=== PATIENT | female | born 1935 | race Caucasian/White ===

== ENCOUNTER 2024-06-21 16:08 | Emergency (ER) | payer MEDICARE, SELFPAY ==
[2024-06-21 16:18] VITALS: BP 138/63
[2024-06-21 16:47] LABS: % Basophils 0.5 % (0-2); % Immature Granulocytes 0.4 % (0-0.5); % Lymphocytes 35.4 % (20.5-51.1); % Monocytes 6.7 % (1.7-9.3); Absolute Eosinophils 0.2 10^3/uL (0-0.7); Absolute Monocytes 0.6 10^3/uL (0.1-0.6); Absolute Neutrophils 4.6 10^3/uL (1.4-6.5); Hematocrit 40.3 % (37.0-47.0); Mean Corp Hgb Conc. 32.3 g/dL (33.0-37.0); Mean Corpuscular Hgb 32.3 pg (27.0-31.0); Mean Corpuscular Volume 100.2 fL (81.0-99.0); Mean Platelet Volume 10.1 fL (7.4-10.4); Nucleated Red Blood Cells % 0 %; Platelet Count 242 10^3/uL (130-400); Red Blood Cell Count 4.02 10^6/uL (4.20-5.40); Red Cell Dist. Width 12.7 % (11.5-14.5); White Blood Cell Count 8.3 10^3/uL (4.8-10.8)
[2024-06-21 16:59] LABS: ALT (SGPT) 16 U/L (0-35); AST (SGOT) 24 U/L (14-36); Albumin 3.9 g/dl (3.5-5.0); Alkaline Phosphatase 74 U/L (38-126); Blood Urea Nitrogen 17 mg/dl (7-17); Calcium 9.1 mg/dl (8.4-10.2); Carbon Dioxide 28 mmol/L (22-30); Chloride 104 mmol/L (98-107); Glucose 117 mg/dl (70-99); Potassium 3.3 mmol/L (3.5-5.1); Sodium 141 mmol/L (135-145); Total Bilirubin 0.7 mg/dl (0.2-1.3); Total Protein 6.3 g/dl (6.3-8.2); eGFR 43.27
[2024-06-21 17:07] LABS: COVID-19 Antigen Negative (Negative)
[2024-06-21 17:11] LABS: Troponin I < 0.012 ng/ml
[2024-06-21 20:01] VITALS: BP 125/65
[2024-06-21 20:45] VITALS: BMI 30.1
--- NOTE | 2024-06-21 21:17 | ED.GENMED ---
History of Present Illness
General
Chief Complaint: Chest Pain
Source: patient
Exam Limitations: none
Time Seen by Provider: 06/21/24 20:07
Nursing documentation reviewed up to this point in time: agreed with
History of Present Illness
History of Present Illness:
89 y/o F
with h/o CAD, DVT/PE ON ELIQUIS, DEMENTIA, bronchitis, former smoker
PAF
here with 1 week fo chest pain intermittent and sob, wheezing, cough that is dry
pt has been put on neb treatments which do offer temporary relief but the pain seemed to be worsening, worse with cough and deep breathing
she has been taking all her meds, no reason her eliquis hasn't been given
she has not had fever, chills, weakness, leg swelling, syncope, lightheadedness
pt had 2 cxr at the facility and they said no PNA but maybe 'fluid in lungs'
pt is not on lasix
SHE HAS MOST PAIN WITH COUGHING
Past History
Past History
ED Past Medical History: CAD, CVA, GERD, Hypercholesterolemia and Other
ED Past Surgical History: Orthopedic and Other
Social History
Tobacco: Non-smoker
Alcohol: None
Drug: None
Personal:
Living: with family
Employment: Retired
Review of Systems
Review of Systems
Allergies reviewed?: Yes
All Other Systems: Not applicable
Phy Exam
Physical Exam
Physical Exam:
GENERAL: Alert , in no apparent distress
EYE: pupils equal and reactive
NECK: Supple
ENT: o/p clr, mmm.
CARDIAC: Regular rate and rhythm .
LUNGS: OCC COUGH, SLIGHTLY WHEEZY, NO RESP DISTRESS;
ABDOMEN: Soft, without focal tenderness, no r/g, no cvat, normal bowel sounds
NEUROLOGICAL: Alert and oriented, no focal neuro deficits
SKIN: Warm and dry, skin intact.
MUSCULOSKELETAL: TRACE edema, well perfused. neg jil's sign
PSYCH: Normal and appropriate interaction.
Scores
Heart Score for Chest Pain Patients
STEMI patient?: No
History: Slightly or Non-Suspicious
ECG: Nonspecific Repolarization
Age: >/= 65 years
Risk Factors: >/= 3 Risk Factors or History of CAD
Troponin: </= Normal Limit
Heart Score for Chest Pain Patients: 5
Heart Score Risk: 20.3% MACE over next 6 weeks
Course
Orders/Labs/Results
Orders:
Orders
06/21/24 16:21
Electrocardiogram (*1) Urgent
Reason for Study: Chest Pain
06/21/24 16:22
EKG- Treatment ONCE
06/21/24 16:32
CMP [Comprehensive Metabolic Panel] Urgent
COVID-19 Antigen Urgent
Source: Nasal Swab
Complete Blood Count/With Diff Urgent
NT-proBNP Urgent
Comment: ADD ON
Troponin I Urgent
Influenza A+B Rapid Molecular Urgent
AUGUSTINE Source: Nasal Swab
Specimen Description:
Date Specimen was Collected: 06/21/24
Time Specimen was Collected: 16:22
RSV [Respiratory Syncytial Virus] Urgent
AUGUSTINE Source: Nasal Swab
Specimen Description:
Date Specimen was Collected: 06/21/24
Time Specimen was Collected: 16:22
06/21/24 20:45
Add On- LAB Urgent
Tests Added?: BNP
CR Chest - 2 Views Urgent
Comment:
Reason For Exam: cough, sob,
06/21/24 21:43
CT Chest PE Study Urgent
Comment:
Reason For Exam: pleuriticp milton, sob
06/22/24 00:23
Ipratropium/Albuterol Sulfate [Duoneb] 3 ml INH R NOW ONE
Prednisone [Deltasone] 50 mg PO NOW STA
06/22/24 00:24
Doxycycline [Vibramycin] 100 mg PO NOW STA
Abnormal Lab Results
06/21/24
16:32
RBC 4.02 L 10^6/uL
(4.20-5.40)
MCV 100.2 H fL
(81.0-99.0)
MCH 32.3 H pg
(27.0-31.0)
MCHC 32.3 L g/dL
(33.0-37.0)
Potassium 3.3 L mmol/L
(3.5-5.1)
Creatinine 1.2 H mg/dL
(0.6-1.0)
Glucose 117 H mg/dl
(70-99)
06/21/24 16:32
06/21/24 16:32
Vital Signs
Initial and Last Documented VS:
Initial Vital Signs
Temp Pulse Resp BP Pulse Ox
36.7 C 82 18 138/63 96
06/21/24 16:18 06/21/24 16:18 06/21/24 16:18 06/21/24 16:18 06/21/24 16:18
Last Documented Vital Signs
Temp Pulse Resp BP Pulse Ox
36.7 C 73 22 141/59 95
06/21/24 16:18 06/22/24 00:15 06/22/24 00:15 06/22/24 00:00 06/22/24 00:15
MDM/Problems Addressed
Differential Diagnosis Includes:
BRONCHITIS, PNEUMONIA, PE
MDM/Problems Addressed:
89-year-old female coming from [facility], history of some mild dementia, ex-smoker, on Eliquis presents for 1 week of URI symptoms with a cough, occasional wheezing, and some discomfort in her chest with deep breathing and coughing. Patient has
no exertional chest pain but she has been feeling worse and worse, very sore in her chest. She is been getting neb treatments over the last couple of days which temporarily help the shortness of breath but not relieve the chest discomfort. She has
had a couple of negative chest x-rays at [facility]. She has not had a fever. On exam she is well-appearing, speaking full sentences, not hypoxic but she does have an occasional audible wheeze and an occasional cough. Her EKG is different from
before, she was in A-fib and now she is in normal sinus rhythm and has flattening T waves in the precordial leads where she had T wave inversions previously. So this EKG does look improved. It is reassuring that her troponin was negative since her
symptoms have been ongoing for several days, effectively ruling out ACS. I am aware that she is on Eliquis however with the patient's chest discomfort and her chest x-ray which looked abnormal in the retrocardiac space, CT. The CT shows
cardiomegaly I discussed the case with ED attending and we opted to but no significant pericardial effusion, some aortic calcifications without any PE, there is no pneumonia. These findings were discussed with the patient and the family. She feels
well enough to go home. She is not wheezing now but would like a breathing treatment before she goes home. Will cover her with antibiotics for bronchitis, she is on meds that prolong QT and her QT was 505 so I will avoid Zithromax and give her
doxycycline instead. Patient also will be placed on steroids for 3 days to help with the wheezing. Return precautions given
*Critical Care Note
Total Time (30-74mins, 75-104mins- exclusive of procedures): Not Applicable
ED Attending Note
-
Portions of this chart may have been created with voice recognition software.� Occasional wrong word or��sound alike� substitutions may have occurred due to the inherent limitations of voice recognition software.
Discharge Plan
Departure
Patient Disposition: Home (Routine Discharge)
Date of Disposition: 06/22/24
Time of Disposition: 00:29
Patient with high blood pressure during this ER visit?: Yes
Condition: Fair
Covid-19: Negative COVID-19
Discharge Problem:
Acute asthmatic bronchitis
Instructions: Bronchitis in adults - ED discharge instructions
Prescriptions:
New
doxycycline hyclate 100 mg tablet
100 mg PO BID Qty: 14 0RF
prednisone 20 mg tablet
40 mg PO DAILY 3 Days Qty: 6 0RF
No Action
escitalopram oxalate 10 MG tablet
10 mg PO DAILY
mirabegron [Myrbetriq] 50 MG tablet extended release 24 hr
50 mg PO DAILY
sennosides [senna] 8.6 mg Tablet
17.2 mg PO DAILY
risperidone 0.25 mg Tablet
0.25 mg PO DAILY
lorazepam 0.5 mg Tablet
0.5 mg PO [id number] PRN (Reason: anxiety)
mupirocin 2 % Ointment
1 applic TOPICAL [id number] PRN (Reason: SKIN IRRITATION)
Eliquis 5 mg Tablet
5 mg PO BID Qty: 60 0RF
dapagliflozin propanediol [Farxiga] 10 mg Tablet
10 mg PO DAILY Qty: 30 0RF
amiodarone [Pacerone] 200 mg Tablet
200 mg PO DAILY Qty: 30 0RF
polyethylene glycol 3350 [Miralax] 17 gram Powder In Packet
17 g PO DAILYPRN PRN (Reason: CONSTIPATION)
prochlorperazine maleate 10 mg Tablet
10 mg PO Q6HPRN PRN (Reason: NAUSEA/VOMITING)
acetaminophen 500 mg Tablet
1,000 mg PO TID
guaifenesin 100 mg/5 mL Liquid
200 mg PO Q6HPRN PRN (Reason: COUGH)
hyoscyamine sulfate 0.125 mg Tablet, Sublingual
0.125 mg SUBLINGUAL Q4HPRN PRN (Reason: SECRETIONS)
omeprazole 20 mg Capsule,Delayed Release(Dr/Ec)
40 mg PO DAILY
gabapentin 100 mg Capsule
100 mg PO DAILY
gabapentin 100 mg Capsule
200 mg PO HS
loratadine 10 mg Tablet
10 mg PO HS
Preparation H Rapid Rlf-Lidocn 5-0.25-14.4-15 % Cream
1 applic topical BID
ipratropium-albuterol 0.5 mg-3 mg(2.5 mg base)/3 mL solution for nebulization
3 ml inhalation R Q4
furosemide 20 mg tablet
20 mg PO BID
Referrals:
Yusuf Julien MD [Family Provider] - Follow up in 2-3 days
Activity Restrictions/Additional Instructions:
Your your workup here was reassuring. You had a negative troponin, a CT that did not show any findings of pneumonia or heart failure or a PE. You did have some aortic calcifications and cardiomegaly which is an enlarged heart but no other
concerning findings. You do have a large hiatal hernia which has been known. We are treating you for asthmatic bronchitis, take prednisone 40 mg once a day for 3 days starting on 2�3. Take doxycycline twice a day to cover for bronchitis
infection. Also continue neb treatments every 4-6 hours as needed for cough and wheezing. Return for any worsening symptoms like severe chest pain, high fever, worsening shortness of breath or hypoxia etc.
Interventions
Interventions:
*Risk Screen - Suicide Last Done: 06/21/24 16:18
*General Assessment Last Done: 06/21/24 20:45
*ED COVID-19 Vaccine History Last Done: 06/21/24 20:45
ED- Cardiac Assessment Last Done: 06/21/24 20:45
Discharge Date and Time
Print Language: KAZAKH
[2024-06-21 21:28] LABS: NT-proBNP 397 pg/ml
[2024-06-21 21:35] VITALS: BP 118/91
[2024-06-21 22:00] VITALS: BP 116/63
[2024-06-21 23:00] VITALS: BP 136/65
[2024-06-22] VITALS: BP 141/59
[2024-06-22] MEDS: DUONEB 3 ML INH (00:27)
[2024-06-22] MEDS: VIBRAMYCIN 100 MG PO (00:27)
[2024-06-22] MEDS: DELTASONE 50 MG PO (00:27)
[2024-06-22 00:33] VITALS: BP 143/61
== END 2024-06-22 00:56 | disposition home or self-care (01) ==
LOC: EMR 16:08
PROVIDERS: EMERGENCY PHYSICIAN Emergency Medicine; FAMILY PHYSICIAN Otolaryngology
DX: J45.909 Unspecified asthma, uncomplicated (principal); E78.00 Pure hypercholesterolemia, unspecified; I25.10 Atherosclerotic heart disease of native coronary artery without angina pectoris; F03.90 Unspecified dementia, unspecified severity, without behavioral disturbance, psychotic disturbance, mood disturbance, and anxiety; Z86.73 Personal history of transient ischemic attack (TIA), and cerebral infarction without residual deficits; I48.0 Paroxysmal atrial fibrillation; Z86.718 Personal history of other venous thrombosis and embolism; Z79.01 Long term (current) use of anticoagulants; K21.9 Gastro-esophageal reflux disease without esophagitis; Z87.891 Personal history of nicotine dependence
CPT/HCPCS: 94640; 99285; 71046; 71275; 80053; 83880; 84484; 85025; 87502; 87807; 87811; 93005; Q9967

== ENCOUNTER 2024-07-02 21:38 | Inpatient (IN) | payer MEDICARE, SELFPAY ==
[2024-07-02] VITALS (12 sets, daily range): BP systolic 103–163; BP diastolic 54–134; BMI 31.7; BMI 30.8
[2024-07-02 16:59] LABS: % Basophils 0.4 % (0-2); % Eosinophils 2.9 % (0-6); % Immature Granulocytes 0.4 % (0-0.5); % Lymphocytes 44.5 % (20.5-51.1); % Monocytes 8.2 % (1.7-9.3); % Neutrophils 43.6 % (42.2-75.2); Absolute Eosinophils 0.2 10^3/uL (0-0.7); Absolute Lymphocytes 3.6 10^3/uL (1.2-3.4); Absolute Monocytes 0.7 10^3/uL (0.1-0.6); Absolute Neutrophils 3.5 10^3/uL (1.4-6.5); Hematocrit 40.8 % (37.0-47.0); Hemoglobin 13.2 g/dL (12.0-16.0); Mean Corp Hgb Conc. 32.4 g/dL (33.0-37.0); Mean Corpuscular Hgb 32.7 pg (27.0-31.0); Nucleated Red Blood Cells % 0 %; Platelet Count 227 10^3/uL (130-400); Red Blood Cell Count 4.04 10^6/uL (4.20-5.40); Red Cell Dist. Width 12.9 % (11.5-14.5)
[2024-07-02 17:14] LABS: ALT (SGPT) 17 U/L (0-35); AST (SGOT) 22 U/L (14-36); Alkaline Phosphatase 77 U/L (38-126); Blood Urea Nitrogen 21 mg/dl (7-17); Calcium 9.4 mg/dl (8.4-10.2); Carbon Dioxide 30 mmol/L (22-30); Chloride 101 mmol/L (98-107); Estimated Creatinine Clearance 26 ml/min; Glucose 111 mg/dl (70-99); Potassium 3.6 mmol/L (3.5-5.1); Sodium 141 mmol/L (135-145); Total Bilirubin 0.8 mg/dl (0.2-1.3); Total Protein 6.5 g/dl (6.3-8.2); eGFR 35.96
[2024-07-02 17:25] LABS: NT-proBNP 266 pg/ml; Troponin I < 0.012 ng/ml
--- NOTE | 2024-07-02 17:27 | ED.GENMED ---
History of Present Illness
General
Chief Complaint: Cough
Source: patient, records and family
Time Seen by Provider: 07/02/24 17:15
History of Present Illness
History of Present Illness:
89yoF with a history of VTE on Eliquis, coronary artery disease, CHF, atrial fibrillation, large hiatal hernia, dementia and former tobacco use presenting via EMS with her son for evaluation of a cough and shortness of breath. Patient arrives from
the memory care unit at [facility]. A majority of history is provided by her son at bedside. Patient has been having a hacking cough ongoing for 3 weeks. She was seen in the ED on 06/21/24 for these symptoms and was diagnosed with bronchitis. She was
discharged with prescriptions for prednisone and doxycycline. Son states her symptoms improve for about an hour after neb treatments but then recur. Her breathing significantly worsened today which prompted EMS call. Patient was given multiple neb
treatments prior to arrival without improvement. She also reports some chest discomfort with coughing.
Past History
Past History
ED Past Medical History: CAD, CVA, GERD, Hypercholesterolemia and Other
ED Past Surgical History: Orthopedic and Other
Social History
Tobacco: Non-smoker
Alcohol: None
Drug: None
Personal:
Living: with family
Employment: Retired
Phy Exam
General Physical Exam
General Presentation: mild distress
General Skin: warm and dry
General Habitus: normal and elderly
General Mental: alert
ENT Exam
ENT Exam: normocephalic
Cardiovascular Exam
Cardiovascular Exam: regular rate/rhythm and other (1+ pitting edema to bilateral lower extremities)
Pulmonary Exam
Pulmonary Exam: other (Rhonchi and wheezing noted bilaterally. Patient tachypneic with mild conversational dyspnea. Frequent cough.)
Neurological Exam
Neurological Exam: alert
Skin Exam
Skin Exam: normal color and warm/dry
Psychiatric Exam
Psychiatric Exam: normal mood/affect
Course
Orders/Labs/Results
Orders:
Orders
07/02/24 16:41
Electrocardiogram (*1) Urgent
Reason for Study: Other
Other Reason for Exam: Respiratory Distress
EKG- Treatment ONCE
CR Chest - 2 Views Urgent
Comment:
Reason For Exam: respiratory distress
07/02/24 16:43
Complete Blood Count/With Diff Urgent
Comprehensive Metabolic Panel Urgent
NT-proBNP Urgent
Troponin I Urgent
07/02/24 17:27
Levalbuterol [Xopenex 1.25 mg Inhalant Solution] 1.25 mg INH R NOW STA
07/02/24 19:55
Dexamethasone Sod Phosphate [Decadron] 10 mg IV NOW STA
07/02/24 20:19
Levalbuterol [Xopenex 1.25 mg Inhalant Solution] 1.25 mg INH R NOW STA
07/02/24 21:02
Admit/Transfer Patient As Directed
Co-Sign Provider:
Level of Care: Inpatient admission
Assign to:: Telemetry
Physician / Group: Cait
Diagnosis: Hypoxia, Bronchitis
Reason for Telemetry: Arrhythmia
Date to Stop Telemetry: 07/05/24
Time to Stop Telemetry: 11:00
Reason for Hospitalization: steroids, nebs, oxygen
Expected length of stay greater than two midnights?: Yes
ELOS- Estimated Length of Stay in days: 3
I certify the patient meets the requirements for IP care: Yes
07/02/24 21:03
PRN Pain Medication Management As Directed
May give lesser potent ordered pain med per pt: Yes
preference::
Protocol:: Medication orders for pain may be administered in a
manner that supports deferring to patient preference
when the pt is:
- Requesting an ordered lesser potent pain medication.
Least to most potent pain medications are defined
as: acetaminophen < NSAID < tramadol < opioids
(morphine, oxycodone, hydromorphone).
- Requesting a lesser dose of the same medication IF
ORDERED.
- Requesting a less intrusive route of administration
if both routes are prescribed by the provider (PO <
IV).
07/02/24 21:06
Code Status As Directed
Resuscitation Status: Do not resuscitate
Reached after discussion with pt or family/Healthcare POA: Yes
DNR Bracelet Application ONCE
07/02/24 21:09
COVID-19 Antigen Urgent
Source: Nasal Swab
07/02/24 22:00
Flush (0.9% Sodium Chloride) [Flush (Nss)] See Dose Instructions IV PER PROTOCOL
07/05/24 11:00
DC Protocol for Telemetry ONCE
Abnormal Lab Results
07/02/24
16:43
RBC 4.04 L 10^6/uL
(4.20-5.40)
MCV 101.0 H fL
(81.0-99.0)
MCH 32.7 H pg
(27.0-31.0)
MCHC 32.4 L g/dL
(33.0-37.0)
MPV 11.0 H fL
(7.4-10.4)
Absolute Lymphs (auto) 3.6 H 10^3/uL
(1.2-3.4)
Absolute Monos (auto) 0.7 H 10^3/uL
(0.1-0.6)
BUN 21 H mg/dl
(7-17)
Creatinine 1.4 H mg/dL
(0.6-1.0)
Glucose 111 H mg/dl
(70-99)
07/02/24 16:43
07/02/24 16:43
Vital Signs
Initial and Last Documented VS:
Initial Vital Signs
Temp Pulse Resp BP Pulse Ox
97.8 F 82 20 130/66 98
07/02/24 16:34 07/02/24 16:34 07/02/24 16:34 07/02/24 16:34 07/02/24 16:34
Last Documented Vital Signs
Temp Pulse Resp BP Pulse Ox
97.8 F 94 19 131/61 94
07/02/24 16:34 07/02/24 21:15 07/02/24 21:15 07/02/24 21:00 07/02/24 21:15
MDM/Problems Addressed
Differential Diagnosis Includes:
89yoF here with a cough x 3 weeks. Seen in the ED recently for the same. S/p doxycycline and prednisone course without improvement. Dyspnea worsening today. She is tachypneic during initial exam with rhonchi/wheezing on lung exam. Differential
diagnosis includes but is not limited to: viral illness, bronchitis, pneumonia, CHF exacerbation
Initial ED plan: Check cardiac labs, EKG, and CXR. Xopenex neb and reassess.
*EKG
Interpreted by ED Provider?: Yes
EKG Intrepretation Date: 07/02/24
Heart Rate: 83
Rate: normal
Rhythm: sinus
[place]: right axis deviation
Interval: normal interval
Ischemia: non-specific ST changes
*Critical Care Note
Total Time (30-74mins, 75-104mins- exclusive of procedures): Not Applicable
Update Note
Update Note:
Labs overall unremarkable including normal white count. Troponin/BNP normal. CXR unchanged from prior, no infiltrates seen. Work of breathing improved on reassessment although oxygen saturation 87-88% on room air and she continues to have wheezing.
Second neb treatment and IV Decadron ordered. She was placed on 2L NC. Patient admitted for further management.
ED Attending Note
-
Portions of this chart may have been created with voice recognition software.� Occasional wrong word or��sound alike� substitutions may have occurred due to the inherent limitations of voice recognition software.
Discharge Plan
Departure
Patient Disposition: Admit
Date of Disposition: 07/02/24
Time of Disposition: 20:20
Presentation/result/management discussed w/ accepting MD/DO: Hospitalist
Discharge Problem:
Acute respiratory failure with hypoxia
Prescriptions:
No Action
escitalopram oxalate 10 MG tablet
10 mg PO DAILY
mirabegron [Myrbetriq] 50 MG tablet extended release 24 hr
50 mg PO DAILY
sennosides [senna] 8.6 mg Tablet
17.2 mg PO DAILY
risperidone 0.25 mg Tablet
0.25 mg PO DAILY
lorazepam 0.5 mg Tablet
0.5 mg PO [id number] PRN (Reason: anxiety)
mupirocin 2 % Ointment
1 applic TOPICAL [id number] PRN (Reason: SKIN IRRITATION)
Eliquis 5 mg Tablet
5 mg PO BID Qty: 60 0RF
dapagliflozin propanediol [Farxiga] 10 mg Tablet
10 mg PO DAILY Qty: 30 0RF
amiodarone [Pacerone] 200 mg Tablet
200 mg PO DAILY Qty: 30 0RF
polyethylene glycol 3350 [Miralax] 17 gram Powder In Packet
17 g PO DAILYPRN PRN (Reason: CONSTIPATION)
prochlorperazine maleate 10 mg Tablet
10 mg PO Q6HPRN PRN (Reason: NAUSEA/VOMITING)
acetaminophen 500 mg Tablet
1,000 mg PO TID
hyoscyamine sulfate 0.125 mg Tablet, Sublingual
0.125 mg SUBLINGUAL Q4HPRN PRN (Reason: SECRETIONS)
omeprazole 20 mg Capsule,Delayed Release(Dr/Ec)
40 mg PO DAILY
gabapentin 100 mg Capsule
100 mg PO DAILY
gabapentin 100 mg Capsule
200 mg PO HS
loratadine 10 mg Tablet
10 mg PO HS
Preparation H Rapid Rlf-Lidocn 5-0.25-14.4-15 % Cream
1 applic topical BID
ipratropium-albuterol 0.5 mg-3 mg(2.5 mg base)/3 mL solution for nebulization
3 ml inhalation R Q4
furosemide 20 mg tablet
20 mg PO BID
Referrals:
Mike Marie MD [Family Provider] -
Interventions
Interventions:
*Risk Screen - Suicide Last Done: 07/02/24 16:34
*General Assessment Last Done: 07/02/24 16:34
*Neglect/Abuse Screening Last Done: 07/02/24 16:34
ED- Fall Risk Assessment Last Done: 07/02/24 16:34
ED- Pulmonary Assessment Last Done: 07/02/24 16:39
Discharge Date and Time
Print Language: GREEK
[2024-07-02] MEDS: XOPENEX 1.25 MG INHALANT SOLUTION INH ×2 (17:34→20:24)
[2024-07-02] MEDS: DECADRON 10 MG IV (20:24)
--- NOTE | 2024-07-02 20:28 | HPS.HSE ---
Family Physician
-
Family Physician: Mike Marie MD
Chief Complaint
-
Cough and Hypoxia
History of Present Illness
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 Patient reports ongoing cough for the past 3 weeks. She was seen her at
the [facility] ED on Jun 21 at which time she was given a prednisone taper, and doxycycline. Despite these intervention she has continued with cough and today her facility she was noted to be hypoxic. Patient reports cough is
non-productive. She admits to shortness of breath and some chest discomfort. She denies fevers, sweats or chills. She denies lower extremity edema.
Medical History
Past Medical History
Past Medical History: Reports Other
Additional Past Medical History:
Chronic HFrEF
Coronary Artery Disease
Paroxysmal Atrial Fibrillation
Essential Hypertension
Hyperlipidemia
Lower Ext DVT
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
Depression
GERD / Hiatal Hernia
Overactive Bladder
Past Surgical History: Reports Other
Additional Past Surgical History:
Right Knee Replacement
Left Carpal Tunnel
Spinal Stenosis
Bilateral Cataracts
Social History
Tobacco: Former Smoker (Quit over 40 years)
Living: Other (Memory Care Unit at [facility])
Family History
Family History: Not pertinent
Allergies / Home Medications
Allergies reflects when Allergies were last updated in [facility] [employer].
Home Medications with original date entered in [facility] [employer]
Allergy/Medication List:
Allergies
Allergy/AdvReac Type Severity Reaction Status Date / Time
oxycodone HCl [From Percocet] Allergy dizziness/n Verified 07/02/24 16:33
ausea
Home Medications
escitalopram oxalate 10 mg tablet 10 mg PO DAILY Mental Health/Anxiety 03/26/12
mirabegron 50 mg tablet,extended release 24 hr (Myrbetriq) 50 mg PO DAILY Urinary Issue 06/07/20
lorazepam 0.5 mg tablet 0.5 mg PO [id number] PRN anxiety 04/04/23
mupirocin 2 % topical ointment 1 applic topical [id number] PRN SKIN IRRITATION 04/04/23
risperidone 0.25 mg tablet 0.25 mg PO DAILY Mental Health/Anxiety 04/04/23
sennosides 8.6 mg tablet (senna) 17.2 mg PO DAILY 04/04/23
amiodarone 200 mg tablet (Pacerone) 200 mg PO DAILY #30 tabs 04/26/23
apixaban 5 mg tablet (Eliquis) 5 mg PO BID #60 tabs 04/26/23
dapagliflozin propanediol 10 mg tablet (Farxiga) 10 mg PO DAILY #30 tabs 04/26/23
acetaminophen 500 mg tablet 1,000 mg PO TID 06/21/24
furosemide 20 mg tablet 20 mg PO BID 06/21/24
gabapentin 100 mg capsule 100 mg PO DAILY 06/21/24
gabapentin 100 mg capsule 200 mg PO HS 06/21/24
hyoscyamine sulfate 0.125 mg sublingual tablet 0.125 mg sublingual Q4HPRN PRN SECRETIONS 06/21/24
ipratropium 0.5 mg-albuterol 3 mg (2.5 mg base)/3 mL nebulization soln 3 ml inhalation R Q4 06/21/24
lidocaine 5 %-phenylephrine 0.25 %-glycern 14.4 %-petrolatm 15 % cream (Preparation H Rapid Relief-Lidocaine) 1 applic topical BID hemorrhoids 06/21/24
loratadine 10 mg tablet 10 mg PO HS 06/21/24
omeprazole 20 mg capsule,delayed release 40 mg PO DAILY 06/21/24
polyethylene glycol 3350 17 gram oral powder packet (Miralax) 17 g PO DAILYPRN PRN CONSTIPATION 06/21/24
prochlorperazine maleate 10 mg tablet 10 mg PO Q6HPRN PRN NAUSEA/VOMITING 06/21/24
Review of Systems
-
A 12 point ROS was completed and negative except as noted: Yes
Constitutional: Denies Fever or Chills
Respiratory: Reports See HPI
Cardiac: Denies Palpitations
Physical Exam
Vital Signs
Vital Signs
Temp Pulse Resp BP Pulse Ox
97.8 F 82 19 128/57 86
07/02/24 16:34 07/02/24 19:00 07/02/24 19:00 07/02/24 18:30 07/02/24 19:00
Physical Exam
General: Comfortable, Conversant and Other (Frequent cough)
HEENT: Anicteric, Moist mucous membranes and Oxygen (Nasal Cannula)
Respiratory: Rhonchi (Diffuse) and Non Labored Respirations
Cardiac: S1/S2 and Regular Rhythm; No Murmur
GI: Soft and Non Tender
Rectal: Deferred by Provider
Musculoskeletal: No Clubbing, No Cyanosis and No Edema
Skin: Warm and Dry
Neuro: Awake, Alert and Nonfocal/grossly intact
Psych: Calm
Laboratory Results
-
07/02/24 16:43
07/02/24 16:43
Laboratory Results
Total Bilirubin 0.8 mg/dl (0.2-1.3) 07/02/24 16:43
AST 22 U/L (14-36) 07/02/24 16:43
ALT 17 U/L (0-35) 07/02/24 16:43
Alkaline Phosphatase 77 U/L (38-126) 07/02/24 16:43
Troponin I < 0.012 ng/ml 07/02/24 16:43
Data Reviewed
-
Diagnostic Radiology: Report Reviewed by me
Lab Data: Labs Reviewed by me
Old Records: Reviewed
Impression/Plan
-
Acute Hypoxic Respiratory Insufficiency secondary to Acute Bronchitis
-Continue supplemental oxygen
-Continue Mucinex
-Continue Decadron 4mg q8h
-Continue DuoNeb QID and PRN
-Encourage use of incentive spirometer and acapella device
Acute Renal Insufficiency
-Cr 1.2 on Jun 21 - Previously Cr ~0.9-1.1
-Hold Lasix
-Recheck labs in AM
Chronic HFrEF
-Lasix on hold as above
-Continue Farxiga
-Monitor Is&Os and Daily Weights
Paroxysmal Atrial Fibrillation
-Continue Amiodarone
-Continue Eliquis
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
-Continue Risperdal
Depression
-Continue Lexapro
GERD/ Hiatal Hernia
-Continue Protonix
Hx Lower Extremity DVT
-Continue Eliquis
Code Status: DNR
--- NOTE | 2024-07-02 21:17 | W.PN.UPDATE ---
Update Note
Progress Note Update
This is an addendum to the H&P written by Josee Jaimes in 07/02/2024. Patient seen and examined independently with PA.
89-year-old female past medical history of atrial fibrillation, CHF, depression, hemorrhagic CVA, Alzheimer's dementia, hypertension, possible CAD, GERD, hypercholesteremia, pulmonary embolism, presenting with cough and shortness of breath ongoing
for 3 weeks. Diagnosed with acute bronchitis in 06/21 without improvement with prednisone and doxycycline.
Creatinine of 1.4 normally 1.
Chest x-ray shows no acute abnormality although report pending. CT chest from 06/21 shows massive hiatal hernia and findings suggesting structures small airway disease.
Presentation consistent with acute bronchitis.
DuoNebs every 6 hours. Dexamethasone.
Slight FLACA on labs likely prerenal. Hold Lasix for now.
[2024-07-02 22:05] LABS: COVID-19 Antigen Negative (Negative)
[2024-07-02] MEDS: TESSALON PERLES 200 MG PO (23:59)
[2024-07-03] VITALS (7 sets, daily range): BP systolic 124–142; BP diastolic 61–75; PULSE 87; O2SAT 93; BMI 30.8
[2024-07-03] MEDS: DECADRON 4 MG IV ×3 (05:24→21:45)
[2024-07-03 06:35] LABS: Hematocrit 40.7 % (37.0-47.0); Mean Corp Hgb Conc. 31.9 g/dL (33.0-37.0); Mean Corpuscular Hgb 32.3 pg (27.0-31.0); Mean Platelet Volume 10.9 fL (7.4-10.4); Platelet Count 172 10^3/uL (130-400); Red Blood Cell Count 4.03 10^6/uL (4.20-5.40); Red Cell Dist. Width 12.9 % (11.5-14.5); White Blood Cell Count 4.9 10^3/uL (4.8-10.8)
[2024-07-03 06:53] LABS: Blood Urea Nitrogen 21 mg/dl (7-17); Calcium 8.8 mg/dl (8.4-10.2); Carbon Dioxide 27 mmol/L (22-30); Chloride 105 mmol/L (98-107); Estimated Creatinine Clearance 30 ml/min; Glucose 147 mg/dl (70-99); Magnesium 2.1 mg/dl (1.6-2.3); Sodium 140 mmol/L (135-145); eGFR 43.27
[2024-07-03] MEDS: DUONEB 3 ML INH ×4 (07:48→20:09)
[2024-07-03] MEDS: MYRBETRIQ EXTENDED RELEASE 50 MG PO (10:33)
[2024-07-03] MEDS: PROTONIX 40 MG PO (10:33)
[2024-07-03] MEDS: LEXAPRO 10 MG PO (10:33)
[2024-07-03] MEDS: SENOKOT 17.2 MG PO (10:33)
[2024-07-03] MEDS: RISPERDAL 0.25 MG PO (10:34)
[2024-07-03] MEDS: MUCINEX 600 MG PO ×2 (10:35→20:28)
[2024-07-03] MEDS: ELIQUIS 5 MG PO ×2 (10:35→20:28)
[2024-07-03] MEDS: PACERONE 200 MG PO (10:35)
[2024-07-03] MEDS: FARXIGA 10 MG PO (10:36)
[2024-07-03] MEDS: NEURONTIN PO (10:42)
[2024-07-03] MEDS: NEURONTIN 100 MG PO (10:43)
--- NOTE | 2024-07-03 14:35 | W.PN.HOSP.TC ---
Today's Communication/Plan
-
Assessment / Plan
Assessment / Plan
Gen-AAOx3, NAD
HEENT-NC, AT, anicteric, clear oral mm
Neck-supple
CV-reg, no M, +S1/S2
Lungs-clear B/L
Abd-soft, NT, ND
Musculoskeletal-no edema, no deformity
Skin-warm and dry
Neuro-grossly non-focal
Psych-calm, cooperative
Ms. Garcia is an 89-year-old female with a medical history of paroxysmal A-fib, HFrEF, hemorrhagic stroke, short-term memory impairment, CAD, lower extremity DVT, and hypertension who presented with cough and hypoxia. She reported ongoing cough
for 3 weeks prior to arrival. She was given a prednisone taper and doxycycline at [facility] ED June 21 with little improvement. In the ED at the time of this admission she was found to be mildly hypoxic and started on supplemental
oxygen. She was also started on IV steroids and nebulizer treatments. She has been admitted for further evaluation and management of acute hypoxic respiratory failure and bronchitis.
Acute hypoxic respiratory failure:
-Suspect secondary to bronchitis
-Initially requiring 4 L via nasal cannula, titrated down to 2 L this morning and subsequently off to room air
-Continue supportive care with Mucinex
-IV Decadron and scheduled nebulizers for now
-Encourage incentive spirometry
FLACA:
-Mild
-Holding Lasix
-Continue to monitor
HFrEF, chronic:
-Currently appears compensated
-Holding Lasix due to FLACA
-Continue Farxiga
Paroxysmal A-fib:
-Continue amiodarone
-Anticoagulation with Eliquis
Depression:
-Appears secondary to prior stroke with short-term memory impairment
-Continue Risperdal and Lexapro
CODE STATUS:
Anticipated Discharge: 24 - 48 hours
Subjective/Interval History
-
Date of Service: July 03, 2024
Patient was seen and examined at bedside this morning. Breathing comfortably reports ongoing intermittent cough.
Objective Data
-
Labs:
Laboratory Results
07/03/24
05:13
WBC 4.9
Hgb 13.0
Hct 40.7
Plt Count 172 D
Sodium 140
Potassium 4.0
Chloride 105
Carbon Dioxide 27
BUN 21 H
Creatinine 1.2 H
Glucose 147 H
Calcium 8.8
Vital Signs:
Vital Signs
Temp Pulse Resp BP Pulse Ox
98.7 F 85 18 124/64 94
07/03/24 11:09 07/03/24 11:09 07/03/24 11:09 07/03/24 11:09 07/03/24 11:09
I&O
07/02/24 07/03/24 07/04/24
06:59 06:59 06:59
Intake Total 480 / 480 480 / 480
Output Total 500 / 500
Balance -20 / -20 480 / 480
Review of Systems
-
History Source: Patient
All other systems: Reviewed and negative
Respiratory: Reports Cough
Physical Exam
-
General: No Apparent Distress
[2024-07-03] MEDS: NEURONTIN 200 MG PO ×2 (21:45)
[2024-07-03] MEDS: CLARITIN 10 MG PO ×2 (21:45)
[2024-07-04 03:25] VITALS: BP 130/60
[2024-07-04] MEDS: DECADRON 4 MG IV ×2 (05:38→13:00)
[2024-07-04 06:00] VITALS: BMI 30.1
[2024-07-04 06:52] LABS: % Basophils 0.1 % (0-2); % Immature Granulocytes 0.7 % (0-0.5); % Lymphocytes 12.3 % (20.5-51.1); % Monocytes 3.2 % (1.7-9.3); % Neutrophils 83.7 % (42.2-75.2); Absolute Immature Granulocytes 0.1 10^3/uL (0-0.05); Absolute Lymphocytes 1.2 10^3/uL (1.2-3.4); Absolute Monocytes 0.3 10^3/uL (0.1-0.6); Absolute Neutrophils 8.3 10^3/uL (1.4-6.5); Hematocrit 39.6 % (37.0-47.0); Hemoglobin 12.7 g/dL (12.0-16.0); Mean Corp Hgb Conc. 32.1 g/dL (33.0-37.0); Mean Corpuscular Hgb 31.8 pg (27.0-31.0); Mean Platelet Volume 10.9 fL (7.4-10.4); Nucleated Red Blood Cells % 0 %; Platelet Count 185 10^3/uL (130-400); Red Cell Dist. Width 12.6 % (11.5-14.5); White Blood Cell Count 9.9 10^3/uL (4.8-10.8)
[2024-07-04 07:05] VITALS: BP 160/85
[2024-07-04 07:15] LABS: Blood Urea Nitrogen 25 mg/dl (7-17); Calcium 9.3 mg/dl (8.4-10.2); Carbon Dioxide 25 mmol/L (22-30); Chloride 103 mmol/L (98-107); Estimated Creatinine Clearance 36 ml/min; Glucose 136 mg/dl (70-99); Magnesium 2.3 mg/dl (1.6-2.3); Phosphorus 4.4 mg/dl (2.5-4.5); Potassium 4.1 mmol/L (3.5-5.1); Sodium 138 mmol/L (135-145); eGFR 53.85
[2024-07-04] MEDS: DUONEB 3 ML INH ×3 (08:29→15:03)
[2024-07-04] MEDS: SENOKOT 17.2 MG PO (09:02)
[2024-07-04] MEDS: MYRBETRIQ EXTENDED RELEASE 50 MG PO (09:02)
[2024-07-04] MEDS: PROTONIX 40 MG PO (09:02)
[2024-07-04] MEDS: FARXIGA 10 MG PO (09:02)
[2024-07-04] MEDS: ELIQUIS 5 MG PO (09:03)
[2024-07-04] MEDS: MUCINEX 600 MG PO (09:03)
[2024-07-04] MEDS: LEXAPRO 10 MG PO (09:03)
[2024-07-04] MEDS: NEURONTIN 100 MG PO (09:03)
[2024-07-04] MEDS: RISPERDAL 0.25 MG PO (09:03)
[2024-07-04] MEDS: PACERONE 200 MG PO (09:03)
--- NOTE | 2024-07-04 09:13 | PN.CDI ---
CDI
- -
CDI:
Physician Documentation Request
Admit Date: 07/02/24 21:38
Dear Doctor Jose Angel,
Patient admitted with bronchitis.
Wound care nursing documentation clinical panel
07/03/24
14:49
Is this a pressure-related injury? [Present on admission Gluteal cleft (vertical)] Yes
Pressure injury stage [Present on admission Gluteal cleft (vertical)] Stage 1
Treatment provided [Present on admission Gluteal cleft (vertical)] Open to air
Wound treatment comments [Present on admission Gluteal cleft (vertical)] frequent
turning
Physician documentation of the type and location of wounds is required for compliant documentation. Based on the above clinical findings and your assessment, please provide the following in your progress note:
1. Location of the ulcer/wound, including laterality.
2. Type (etiology) of ulcer/wound:
- Diabetic ulcer
- Arterial (ischemic) ulcer
- Traumatic wound
- Venous stasis ulcer
- Pressure (decubitus) ulcer
- Non-healing surgical wound
- Other
- Unable to determine
3. For a non-pressure ulcer, please indicate the depth/severity:
- Limited to the breakdown of skin
- With fat layer exposed
- With necrosis of muscle
- With necrosis of bone
- Other
- Unable to determine
4. If a pressure ulcer, please also include the stage* of the ulcer:
- Stage 1 - Skin intact, non-blanchable redness
- Stage 2 - Partial thickness loss of dermis, includes intact or open blister
- Stage 3 - Full thickness tissue not including bone, tendon or muscle
- Stage 4 - Full thickness tissue loss, including exposed bone, tendon or muscle
- Unstageable - Full thickness loss in which the base of the ulcer is covered by slough (yellow, caal, bryant, green or brown) and/or eschar (caal, brown or black) in the wound bed.
- Unable to determine
Use of terms such as suspected, likely, concern for, or probable (associated with a specific diagnosis that is being evaluated, monitored, or treated as if it exists) are acceptable and can be coded in the inpatient setting, when documented at the
time of discharge.
Thank you,
Drea Nelson RN, BSN
CDI Specialist
Available via [place] text
Please use your independent medical judgment in providing your response.
[2024-07-04 11:00] VITALS: BP 131/80
--- NOTE | 2024-07-04 11:26 | W.DCSUMMARY ---
Addendum entered and electronically signed by Brigido Walter DO 07/04/24 11:28:
Stage I pressure ulcer on bilateral heels present on admission, addressed by wound care team.
Original Note:
Discharge Summary
Discharge Data
Date of Admission: 07/02/24
Date of Discharge: 07/04/24
-
Pending Results: No
Hospital Course
Ms. Garcia is an 89-year-old female with a medical history of paroxysmal A-fib, HFrEF, hemorrhagic stroke, short-term memory impairment, CAD, lower extremity DVT, and hypertension who presented with cough and hypoxia. She reported ongoing cough
for 3 weeks prior to arrival. She was given a prednisone taper and doxycycline at [facility] ED June 21 with little improvement. In the ED at the time of this admission she was found to be mildly hypoxic and started on supplemental
oxygen. She was also started on IV steroids and nebulizer treatments. She was admitted for further evaluation and management of acute hypoxic respiratory failure and bronchitis. She was quickly able to be titrated to room air and was breathing
comfortably. She tested positive for MRSA by nasal swab and so was started on a short course of doxycycline. She was evaluated by PT/OT who recommended ongoing therapy at [facility] after discharge. She had a very mild FLACA at time of admission
which resolved after holding her home Lasix. She will be discharged to [facility] with a short course of steroids and antibiotics.
Gen-AAOx3, NAD
HEENT-NC, AT, anicteric, clear oral mm
Neck-supple
CV-reg, no M, +S1/S2
Lungs-clear B/L
Abd-soft, NT, ND
Musculoskeletal-no edema, no deformity
Skin-warm and dry
Neuro-grossly non-focal
Psych-calm, cooperative
Discharge Plan
-
Patient Disposition: Usp/SNF
Discharge Diagnosis/Procedures: Acute hypoxic respiratory failure
Diet: No restrictions
Activity: With assistance and As tolerated
Other Services: PT and OT
Activity Restrictions/Additional Instructions:
Ms. Gacria is an 89-year-old female with a medical history of paroxysmal A-fib, HFrEF, hemorrhagic stroke, short-term memory impairment, CAD, lower extremity DVT, and hypertension who presented with cough and hypoxia. She reported ongoing cough
for 3 weeks prior to arrival. She was given a prednisone taper and doxycycline at [facility] ED June 21 with little improvement. In the ED at the time of this admission she was found to be mildly hypoxic and started on supplemental
oxygen. She was also started on IV steroids and nebulizer treatments. She was admitted for further evaluation and management of acute hypoxic respiratory failure and bronchitis. She was quickly able to be titrated to room air and was breathing
comfortably. She tested positive for MRSA by nasal swab and so was started on a short course of doxycycline. She was evaluated by PT/OT who recommended ongoing therapy at [facility] after discharge. She had a very mild FLACA at time of admission
which resolved after holding her home Lasix. She will be discharged to [facility] with a short course of steroids and antibiotics.
Referrals:
Mike Marie MD [Family Provider] -
Prescriptions:
New
guaifenesin 600 mg Tablet Extended Release 12hr
600 mg PO Q12 5 Days Qty: 10 0RF
doxycycline hyclate 100 mg Capsule
100 mg PO Q12 5 Days Qty: 10 0RF
methylprednisolone [Medrol (Marcello)] 4 mg tablets,dose pack
See Rx Instructions .ROUTE .COMPLEX Qty: 21 0RF
Rx Instructions:
for 6 days
Continued
escitalopram oxalate 10 MG tablet
10 mg PO DAILY
mirabegron [Myrbetriq] 50 MG tablet extended release 24 hr
50 mg PO DAILY
sennosides [senna] 8.6 mg Tablet
17.2 mg PO DAILY
risperidone 0.25 mg Tablet
0.25 mg PO DAILY
lorazepam 0.5 mg Tablet
0.5 mg PO [id number] PRN (Reason: anxiety)
mupirocin 2 % Ointment
1 applic TOPICAL [id number] PRN (Reason: SKIN IRRITATION)
Eliquis 5 mg Tablet
5 mg PO BID Qty: 60 0RF
dapagliflozin propanediol [Farxiga] 10 mg Tablet
10 mg PO DAILY Qty: 30 0RF
amiodarone [Pacerone] 200 mg Tablet
200 mg PO DAILY Qty: 30 0RF
polyethylene glycol 3350 [Miralax] 17 gram Powder In Packet
17 g PO DAILYPRN PRN (Reason: CONSTIPATION)
prochlorperazine maleate 10 mg Tablet
10 mg PO Q6HPRN PRN (Reason: NAUSEA/VOMITING)
acetaminophen 500 mg Tablet
1,000 mg PO TID
hyoscyamine sulfate 0.125 mg Tablet, Sublingual
0.125 mg SUBLINGUAL Q4HPRN PRN (Reason: SECRETIONS)
omeprazole 20 mg Capsule,Delayed Release(Dr/Ec)
40 mg PO DAILY
gabapentin 100 mg Capsule
100 mg PO DAILY
gabapentin 100 mg Capsule
200 mg PO HS
loratadine 10 mg Tablet
10 mg PO HS
Preparation H Rapid Rlf-Lidocn 5-0.25-14.4-15 % Cream
1 applic topical BID
ipratropium-albuterol 0.5 mg-3 mg(2.5 mg base)/3 mL solution for nebulization
3 ml inhalation R Q4
furosemide 20 mg tablet
20 mg PO BID
Discharge Orders:
Discharge Patient (As Directed); Ordered 07/04/24
Ordered By: Brigido Walter
Discharge Date and Time
Print Language: TOGOLESE
[2024-07-04 12:38] LABS: COVID-19 Antigen Negative (Negative)
[2024-07-04] MEDS: VIBRAMYCIN 100 MG PO (13:00)
--- NOTE | 2024-07-04 14:48 | CM ---
Addendum entered by Saray Herring RN 07/04/24 14:52:
Covid test negative from today.
Original Note:
Pt lives at [facility] at [facility]. She is assisted in all ADLs . She uses a walker. PT OT saw pt.
Spoke with Xochitl at [facility] [place] [phone] PT OT faxed to her and pt accepted back .
Spoke with son Robel who will drive her back to [facility].Robel agrees with dc.
[facility] memory care
report [phone]
fax [phone]
PLAN Return to [facility]
[2024-07-04 15:05] VITALS: BP 119/60
[2024-07-04 15:36] VITALS: BP 135/58
== END 2024-07-04 16:09 | disposition home or self-care (01) | DRG 202 ==
LOC: 4 EAST ACU 21:38
PROVIDERS: Physician Assistant Medical; ADMITTING PHYSICIAN Hospitalist; ATTENDING PHYSICIAN Internal Medicine; EMERGENCY PHYSICIAN Emergency Medicine; FAMILY PHYSICIAN Family Medicine
DX: J20.9 Acute bronchitis, unspecified (principal); J96.01 Acute respiratory failure with hypoxia; I50.22 Chronic systolic (congestive) heart failure; N17.9 Acute kidney failure, unspecified; I25.10 Atherosclerotic heart disease of native coronary artery without angina pectoris; K44.9 Diaphragmatic hernia without obstruction or gangrene; I48.0 Paroxysmal atrial fibrillation; E78.00 Pure hypercholesterolemia, unspecified; K21.9 Gastro-esophageal reflux disease without esophagitis; I11.0 Hypertensive heart disease with heart failure; F32.A Depression, unspecified; N32.81 Overactive bladder; L89.611 Pressure ulcer of right heel, stage 1; L89.621 Pressure ulcer of left heel, stage 1; Z96.651 Presence of right artificial knee joint; Z66 Do not resuscitate; Z86.718 Personal history of other venous thrombosis and embolism; Z87.891 Personal history of nicotine dependence; Z11.52 Encounter for screening for COVID-19; Z88.5 Allergy status to narcotic agent; Z79.01 Long term (current) use of anticoagulants; I69.311 Memory deficit following cerebral infarction; I69.315 Cognitive social or emotional deficit following cerebral infarction
CPT/HCPCS: 71046; 80048; 80053; 83735; 83880; 84100; 84484; 85025; 85027; 87070; 87147; 87811; 93005; 94640; 96374; 97116; 97162; 97166; 97535; 99285

== ENCOUNTER 2024-07-07 20:29 | Inpatient (IN) | payer MEDICARE, SELFPAY ==
[2024-07-07 15:43] VITALS: BP 107/54
--- NOTE | 2024-07-07 15:51 | ED.GENMED ---
History of Present Illness
General
Chief Complaint: Breathing Problem
Source: patient and records
Exam Limitations: none
Time Seen by Provider: 07/07/24 15:43
History of Present Illness
History of Present Illness:
89-year-old female presents with increased oxygen demands, cough. Possibly 1 episode of mild hemoptysis. Generally feels weak. Patient
Past History
Past History
ED Past Medical History: CAD, CVA, GERD, Hypercholesterolemia and Other
ED Past Surgical History: Orthopedic and Other
Social History
Tobacco: Non-smoker
Alcohol: None
Drug: None
Personal:
Living: with family
Employment: Retired
Review of Systems
Review of Systems
All Other Systems: Not applicable
Constitutional: Denies fever
Cardiac: Reports no symptoms
ABD/GI: Reports no symptoms
Phy Exam
Physical Exam
Physical Exam:
GENERAL: Alert and oriented. Elderly and frail. But answering questions appropriately. s
EYE: Orbits normal.
NECK: Supple, no significant adenopathy.
ENT: Pharynx without erythema
CARDIAC: Regular rate and rhythm with mild midsystolic murmur
LUNGS: Mild hypoxia at rest. Some coarse rhonchi and expiratory wheezing in the bases
ABDOMEN: Soft, without focal tenderness or distention
NEUROLOGICAL: Alert and oriented , grossly non-focal
SKIN: Warm and dry, no rash or lesion, no discoloration, skin intact.
MUSCULOSKELETAL: No edema,no deformity.Good color
PSYCH: Normal and appropriate interaction.
Scores
Heart Failure Risk
Heart Failure Risk Score: Not Applicable
Course
Orders/Labs/Results
Orders:
Orders
07/07/24 15:42
EKG [Electrocardiogram (*1)] Urgent
Reason for Study: Shortness of Breath
EKG- Treatment ONCE
07/07/24 15:50
Cardiac Monitoring- Treatment ONCE
IV Insert/Care/Rem.- Treatment PRN
CR Chest - 2 Views Urgent
Comment:
Reason For Exam: Cough/rhonchi/hypoxia
O2 Therapy [RESP] Stat
Titrate/Wean O2 to maintain O2 sat greater than (%): 92
Pulse Ox/cont/shift [RESP] Stat
Quantity: 1
07/07/24 15:56
COVID-19 Antigen Urgent
Source: Nasal Swab
Complete Blood Count/With Diff Urgent
Comprehensive Metabolic Panel Urgent
NT-proBNP Urgent
Troponin I Urgent
Influenza A+B Rapid Molecular Urgent
AUGUSTINE Source: Nasal Swab
Specimen Description:
07/07/24 18:45
Cefepime HCl [Maxipime] 2,000 mg IV NOW STA
07/07/24 19:00
Blood Culture Q30M
AUGUSTINE Source: Blood/Venous
Specimen Description:
07/07/24 19:30
Blood Culture Q30M
AUGUSTINE Source: Blood/Venous
Specimen Description:
Abnormal Lab Results
07/07/24
15:56
WBC 19.2 H 10^3/uL
(4.8-10.8)
RBC 3.51 L 10^6/uL
(4.20-5.40)
Hgb 11.5 L g/dL
(12.0-16.0)
Hct 36.0 L %
(37.0-47.0)
MCV 102.6 H fL
(81.0-99.0)
MCH 32.8 H pg
(27.0-31.0)
MCHC 31.9 L g/dL
(33.0-37.0)
MPV 10.6 H fL
(7.4-10.4)
Abs Immat Gran (auto) 0.2 H 10^3/uL
(0-0.05)
Absolute Neuts (auto) 17.7 H 10^3/uL
(1.4-6.5)
Absolute Lymphs (auto) 0.8 L 10^3/uL
(1.2-3.4)
Immature Gran % 0.8 H %
(0-0.5)
Neutrophils % 92.2 H %
(42.2-75.2)
Lymphocytes % 3.9 L %
(20.5-51.1)
BUN 40 H mg/dl
(7-17)
Creatinine 1.4 H mg/dL
(0.6-1.0)
Glucose 130 H mg/dl
(70-99)
Total Protein 5.6 L g/dl
(6.3-8.2)
Albumin 3.3 L g/dl
(3.5-5.0)
07/07/24 15:56
07/07/24 15:56
Vital Signs
Initial and Last Documented VS:
Initial Vital Signs
Pulse Resp BP Pulse Ox
93 21 107/54 89
07/07/24 15:43 07/07/24 15:43 07/07/24 15:43 07/07/24 15:43
Last Documented Vital Signs
Pulse Resp BP Pulse Ox
93 21 107/54 89
07/07/24 15:43 07/07/24 15:43 07/07/24 15:43 07/07/24 15:43
MDM/Problems Addressed
Differential Diagnosis Includes:
Patient with cough increased oxygen demands. No respiratory distress at rest although mildly tachypneic with speaking. Recent admission for similar symptoms. Was on room air prior to discharge.
*Radiology
Radiology exam reviewed: preliminary read by ED provider (Right middle lobe infiltrate)
*Pulse Oximetry
Patient hypoxic: yes
*EKG
Interpreted by ED Provider?: Yes
Interpretation: abnormal
Comparison EKG: changes noted
Heart Rate: 93
Rate: normal
Rhythm: sinus
[place]: normal axis
Interval: long QT
QRS Pattern: normal QRS
Ischemia: non-specific ST changes
*Addresser Interpretation
Rate: normal
Interpretation: normal
Heart Rate: 90
Rhythm: sinus
*Critical Care Note
Total Time (30-74mins, 75-104mins- exclusive of procedures): Not Applicable
Update Note
Update Note:
New right middle lobe infiltrate. Hypoxia. Admission for further care
ED Attending Note
-
Portions of this chart may have been created with voice recognition software.� Occasional wrong word or��sound alike� substitutions may have occurred due to the inherent limitations of voice recognition software.
Discharge Plan
Departure
Patient Disposition: Admit
Date of Disposition: 07/07/24
Time of Disposition: 18:43
Presentation/result/management discussed w/ accepting MD/DO: Hospitalist
Discharge Problem:
Hypoxia/right middle lobe infiltrate
Prescriptions:
No Action
escitalopram oxalate 10 MG tablet
10 mg PO DAILY
mirabegron [Myrbetriq] 50 MG tablet extended release 24 hr
50 mg PO DAILY
sennosides [senna] 8.6 mg Tablet
17.2 mg PO DAILY
risperidone 0.25 mg Tablet
0.25 mg PO DAILY
lorazepam 0.5 mg Tablet
0.5 mg PO [id number] PRN (Reason: anxiety)
mupirocin 2 % Ointment
1 applic TOPICAL [id number] PRN (Reason: SKIN IRRITATION)
Eliquis 5 mg Tablet
5 mg PO BID Qty: 60 0RF
dapagliflozin propanediol [Farxiga] 10 mg Tablet
10 mg PO DAILY Qty: 30 0RF
amiodarone [Pacerone] 200 mg Tablet
200 mg PO DAILY Qty: 30 0RF
polyethylene glycol 3350 [Miralax] 17 gram Powder In Packet
17 g PO DAILYPRN PRN (Reason: CONSTIPATION)
prochlorperazine maleate 10 mg Tablet
10 mg PO Q6HPRN PRN (Reason: NAUSEA/VOMITING)
acetaminophen 500 mg Tablet
1,000 mg PO TID
hyoscyamine sulfate 0.125 mg Tablet, Sublingual
0.125 mg SUBLINGUAL Q4HPRN PRN (Reason: SECRETIONS)
omeprazole 20 mg Capsule,Delayed Release(Dr/Ec)
40 mg PO DAILY
gabapentin 100 mg Capsule
100 mg PO DAILY
gabapentin 100 mg Capsule
200 mg PO HS
loratadine 10 mg Tablet
10 mg PO HS
Preparation H Rapid Rlf-Lidocn 5-0.25-14.4-15 % Cream
1 applic topical BID
ipratropium-albuterol 0.5 mg-3 mg(2.5 mg base)/3 mL solution for nebulization
3 ml inhalation R Q4
furosemide 20 mg tablet
20 mg PO BID
methylprednisolone [Medrol (Marcello)] 4 mg tablets,dose pack
See Rx Instructions .ROUTE .COMPLEX Qty: 21 0RF
Rx Instructions:
for 6 days
ipratropium-albuterol 0.5 mg-3 mg(2.5 mg base)/3 mL Solution For Nebulization
3 ml INHALATION R Q4HPRN PRN (Reason: sob)
Cepacol (with menthol) lozenge
1 karthik PO Q4HPRN PRN (Reason: sore throat)
doxycycline hyclate 100 mg capsule
100 mg PO Q12H
Patient Comments:
07/07/24: to take from 07/05/24-07/09/24
Referrals:
Ced Julien MD [Family Provider] -
Interventions
Interventions:
*Risk Screen - Suicide Last Done: 07/07/24 15:43
*General Assessment Last Done: 07/07/24 15:43
*Neglect/Abuse Screening Last Done: 07/07/24 15:43
Discharge Date and Time
Print Language: PORTUGUESE
[2024-07-07 16:16] LABS: Hemoglobin 11.5 g/dL (12.0-16.0); Mean Corp Hgb Conc. 31.9 g/dL (33.0-37.0); Mean Corpuscular Hgb 32.8 pg (27.0-31.0); Mean Corpuscular Volume 102.6 fL (81.0-99.0); Mean Platelet Volume 10.6 fL (7.4-10.4); Platelet Count 180 10^3/uL (130-400); Red Blood Cell Count 3.51 10^6/uL (4.20-5.40); Red Cell Dist. Width 13.3 % (11.5-14.5); White Blood Cell Count 19.2 10^3/uL (4.8-10.8)
[2024-07-07 16:27] LABS: ALT (SGPT) 23 U/L (0-35); AST (SGOT) 24 U/L (14-36); Albumin 3.3 g/dl (3.5-5.0); Alkaline Phosphatase 64 U/L (38-126); Blood Urea Nitrogen 40 mg/dl (7-17); Calcium 8.9 mg/dl (8.4-10.2); Carbon Dioxide 22 mmol/L (22-30); Chloride 104 mmol/L (98-107); Glucose 130 mg/dl (70-99); Potassium 3.6 mmol/L (3.5-5.1); Sodium 138 mmol/L (135-145); Total Protein 5.6 g/dl (6.3-8.2); eGFR 35.96
[2024-07-07 16:32] LABS: % Basophils 0.2 % (0-2); % Eosinophils 0.1 % (0-6); % Immature Granulocytes 0.8 % (0-0.5); % Lymphocytes 3.9 % (20.5-51.1); % Monocytes 2.8 % (1.7-9.3); % Neutrophils 92.2 % (42.2-75.2); Absolute Immature Granulocytes 0.2 10^3/uL (0-0.05); Absolute Lymphocytes 0.8 10^3/uL (1.2-3.4); Absolute Monocytes 0.5 10^3/uL (0.1-0.6); Absolute Neutrophils 17.7 10^3/uL (1.4-6.5); Nucleated Red Blood Cells % 0 %
[2024-07-07 16:37] LABS: NT-proBNP 781 pg/ml; Troponin I < 0.012 ng/ml
[2024-07-07 16:55] LABS: COVID-19 Antigen Negative (Negative)
--- NOTE | 2024-07-07 19:08 | HPS.HSE ---
Family Physician
-
Family Physician: Ced Julien
Chief Complaint
-
coughing up blood and hypoxia
History of Present Illness
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
[facility] ED for evaluation of coughing up blood and hypoxia. Patient reports 1 episode of coughing up dark blood. Patient recently discharge for hospital stay for bronchitis. Patient denies any fever, chills, shortness of breath, nausea, vomiting,
constipation, diarrhea or urinary symptoms.
Medical History
Past Medical History
Past Medical History: Reports Other
Additional Past Medical History:
paroxysmal atrial fibrillation
essential hypertension
HFrEF
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
CAD
hyperlipidemia
depression
GERD/Hiatal hernia
overactive bladder
lower extremity DVT
Past Surgical History: Reports Other
Additional Past Surgical History:
Right Knee Replacement
Left Carpal Tunnel
Spinal Stenosis
Bilateral Cataracts
Social History
Tobacco: Former Smoker
Alcohol: None
Drug: None
Living: Assisted Living (memory care )
Employment: Retired
Family History
Family History: Not pertinent
Allergies / Home Medications
Allergies reflects when Allergies were last updated in [facility].
Home Medications with original date entered in [facility]
Allergy/Medication List:
Allergies
Allergy/AdvReac Type Severity Reaction Status Date / Time
oxycodone HCl [From Percocet] Allergy dizziness/n Verified 07/02/24 16:33
ausea
Home Medications
escitalopram oxalate 10 mg tablet 10 mg PO DAILY Mental Health/Anxiety 03/26/12
mirabegron 50 mg tablet,extended release 24 hr (Myrbetriq) 50 mg PO DAILY Urinary Issue 06/07/20
lorazepam 0.5 mg tablet 0.5 mg PO [id number] PRN anxiety 04/04/23
mupirocin 2 % topical ointment 1 applic topical [id number] PRN SKIN IRRITATION 04/04/23
risperidone 0.25 mg tablet 0.25 mg PO DAILY Mental Health/Anxiety 04/04/23
sennosides 8.6 mg tablet (senna) 17.2 mg PO DAILY Constipation 04/04/23
amiodarone 200 mg tablet (Pacerone) 200 mg PO DAILY #30 tabs 04/26/23
apixaban 5 mg tablet (Eliquis) 5 mg PO BID #60 tabs 04/26/23
dapagliflozin propanediol 10 mg tablet (Farxiga) 10 mg PO DAILY #30 tabs 04/26/23
acetaminophen 500 mg tablet 1,000 mg PO TID Pain 06/21/24
furosemide 20 mg tablet 20 mg PO BID Fluid Retention/Swelling 06/21/24
gabapentin 100 mg capsule 100 mg PO DAILY Neurological Condition 06/21/24
gabapentin 100 mg capsule 200 mg PO HS Neurological Condition 06/21/24
hyoscyamine sulfate 0.125 mg sublingual tablet 0.125 mg sublingual Q4HPRN PRN SECRETIONS 06/21/24
ipratropium 0.5 mg-albuterol 3 mg (2.5 mg base)/3 mL nebulization soln 3 ml inhalation R Q4 Lung/Breathing Issues 06/21/24
lidocaine 5 %-phenylephrine 0.25 %-glycern 14.4 %-petrolatm 15 % cream (Preparation H Rapid Relief-Lidocaine) 1 applic topical BID hemorrhoids 06/21/24
loratadine 10 mg tablet 10 mg PO HS Allergies 06/21/24
omeprazole 20 mg capsule,delayed release 40 mg PO DAILY Gastrointestinal Issue 06/21/24
polyethylene glycol 3350 17 gram oral powder packet (Miralax) 17 g PO DAILYPRN PRN CONSTIPATION 06/21/24
prochlorperazine maleate 10 mg tablet 10 mg PO Q6HPRN PRN NAUSEA/VOMITING 06/21/24
methylprednisolone 4 mg tablets in a dose pack (Medrol (Marcello)) See Rx Instructions PO .COMPLEX #21 ea 07/04/24
Cepacol (with menthol) 1 karthik PO Q4HPRN PRN sore throat 07/07/24
doxycycline hyclate 100 mg capsule 100 mg PO Q12H 07/07/24
ipratropium 0.5 mg-albuterol 3 mg (2.5 mg base)/3 mL nebulization soln 3 ml inhalation R Q4HPRN PRN sob 07/07/24
Review of Systems
-
History Source: Patient and Family
Constitutional: Reports No Symptoms
EENT: Reports No Symptoms
Respiratory: Reports Cough, Hemoptysis and Other (hypoxia)
Cardiac: Reports No Symptoms
Abdomen/GI: Reports No Symptoms
: Reports No Symptoms
Musculoskeletal: Reports No Symptoms
Skin: Reports No Symptoms
Neurological: Reports No Symptoms
Endocrine: Reports No Symptoms
Hematologic/Lymphatic: Reports No Symptoms
Psych: Reports No Symptoms
Physical Exam
Vital Signs
Vital Signs
Pulse Resp BP Pulse Ox
93 21 107/54 89
07/07/24 15:43 07/07/24 15:43 07/07/24 15:43 07/07/24 15:43
Physical Exam
General: Well Developed, Well Nourished, No Apparent Distress, Comfortable, Conversant and Morbidly Obese
HEENT: NormoCephalic, Moist mucous membranes, Atraumatic, [place] Conjunctivae, Nose Appears Normal and Ears Appear Normal
Respiratory: Clear, Wheezes, Rhonchi and Decreased Breath Sounds
Cardiac: S1/S2, Regular Rhythm and Murmur; No Rub or Gallop
Breast: Deferred by me
GI: Soft, Non Tender, Non Distended and Normal Bowel Sounds; No Organomegaly
Rectal: Deferred by Provider
Genito-urinary: Deferred by me
Musculoskeletal: No Clubbing, No Cyanosis, Edema, Left Lower Extremity (trace ) and Edema, Right Lower Extremity (trace )
Skin: Warm and IV/Catheter Site; No Rash
Neuro: Awake, Alert, AO x 3 and Nonfocal/grossly intact
Psych: Calm
Laboratory Results
-
07/07/24 15:56
07/07/24 15:
Laboratory Results
Total Bilirubin 1.0 mg/dl (0.2-1.3) 07/07/24 15:56
AST 24 U/L (14-36) 07/07/24 15:
ALT 23 U/L (0-35) 07/07/24 15:
Alkaline Phosphatase 64 U/L (38-126) 07/07/24 15:
Troponin I < 0.012 ng/ml 07/07/24 15:
Data Reviewed
-
Diagnostic Radiology: Report Reviewed by me (CXR: New area of parenchymal opacity in the right lower lung, which likely represents pneumonia with associated bronchitis. Hiatal hernia/partially intrathoracic stomach. Cardiomegaly. Mild compressive
atelectasis within the lateral left lower lung.)
Medical Tests (Nuc Med, Echo, EKG etc): Report Reviewed by me (EKG: Critical Test Result: Long QTc NORMAL SINUS RHYTHM INFERIOR-POSTERIOR INFARCT (CITED ON OR BEFORE 21-JUN-2024) PROLONGED QT)
Lab Data: Labs Reviewed by me (WBC 19.2, Neut 17.7, BUN 40, Creat 1.4, BNP 781)
Impression/Plan
-
IMPRESSION/PLAN:
#acute hypoxic respiratory insufficiency
CXR: New area of parenchymal opacity in the right lower lung, which likely represents pneumonia with associated bronchitis.
Hiatal hernia/partially intrathoracic stomach. Cardiomegaly. Mild compressive atelectasis within the lateral left lower lung.
WBC 19.2, Neuts 17.7
Covid & Influenza: negative
- admit to telemetry
- IV antibiotics
- O2 titrate/wean as indicated
- supportive care
#QT prolongation
EKG: Critical Test Result: Long QTc
NORMAL SINUS RHYTHM
INFERIOR-POSTERIOR INFARCT (CITED ON OR BEFORE 21-JUN-2024)
PROLONGED QT
- hold escitalopram and risperidone
- repeat EKG in 6hours
- consider Cardiology consult
#Acute kidney injury
BUN 40, Creat 1.4
- monitor BMP
#paroxysmal atrial fibrillation
EKG: Critical Test Result: Long QTc
NORMAL SINUS RHYTHM
INFERIOR-POSTERIOR INFARCT (CITED ON OR BEFORE 21-JUN-2024)
PROLONGED QT
- continue amiodarone and Eliquis
#essential hypertension
- continue amiodarone
#HFrEF
BNP 781
- monitor daily weights and I&Os
- continue Farxiga, and furosemide
#depression
- hold escitalopram and risperidone as indicated above
#GERD/Hiatal hernia
- continue omeprazole
#overactive bladder
- continue Myrbetriq
#lower extremity DVT
- continue Eliquis
#CAD
#hyperlipidemia
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
Code status: DNR
DVT prophylaxis: Eliquis
[2024-07-07] MEDS: MAXIPIME 2000 MG IV (19:24)
--- NOTE | 2024-07-07 19:52 | W.PN.UPDATE ---
Update Note
Progress Note Update
Patient is in condition with CMP. Ankle with a history of physical. I agree with the assessment and plan listed otherwise.
This patient is a 89-year-old female with past medical history significant for atrial fibrillation on anticoagulation, CHF with preserved EF, prior CVA, CAD, history of DVT, recent episodes of bronchitis requiring hospitalization and treated with
doxycycline and now comes into the emergency department from residential with worsening shortness of breath cough but no fevers or chills. Patient and family reported that she does have a mild hemoptysis with a cough. She denies any lower
extremity swelling. She denies any orthopnea or PND. Lasix was held during admission on 01/27 due to mild FLACA. She has low appetite but denies any other symptoms.
Arrival in the Emergency Department blood pressure of 107/54 with a pulse of 93 satting 89% on room air. Her troponin was 0.012. BNP was 71. ECG showed a normal sinus rhythm at a rate of 93. QTc was quite prolonged at 700. Chest x-ray shows
right lower lobe opacity. CBC and notable for a white count of 19.2, mild left shift. Electrolytes are stable. BUN 1 and creatinine again slightly elevated at 40 & 1.4 respectively.
Patient with hypoxia, right lower lobe opacity, leukocytosis in the setting of her recent bronchitis suspicious for post viral pneumonia. She had a positive MRSA on her last admission. She was sent home on doxycycline and prednisone. Findings
here in addition to the pneumonia a quite prolongation of QTc. She is on Risperdal and Lexapro as well as amiodarone. No clear interactions with doxycycline.
We will admit to telemetry due to the prolongation of the QTc.
Flu and COVID-negative, blood cultures sent
Get Legionella and streptococcal urinary antigens
Given prior antibiotic use and hospitalization we will treat with broad-spectrum antibiotics, continue cefepime, add vancomycin
Supportive care with supplemental oxygen antitussives, nebulizer treatments as needed
Incentive spirometry
Will need to further PT
Afib/ QT prolongation
-Telemetry
� Holding Risperdal and Lexapro
� Repeat ECG in 6 hours
� If QTc is still prolonged at over 600 will consult cardiology
-Amiodarone tomorrow depending on QTc
-Continue Eliquis
CHF
-Euvolemic to slightly hypovolemic hold Lasix for now
FLACA
Holding Lasix for now
Renal dose medications
Code status -DNR/DNI
[2024-07-07 22:00] VITALS: BP 120/55
[2024-07-07 23:00] VITALS: BP 113/58
[2024-07-08] VITALS (10 sets, daily range): BP systolic 98–152; BP diastolic 45–69; PULSE 85–86; O2SAT 93–95; BMI 29.9
[2024-07-08] MEDS: DUONEB 3 ML INH (01:05)
[2024-07-08] MEDS: VANCOCIN 540 MG IV (01:30)
[2024-07-08] MEDS: CLARITIN 10 MG PO ×2 (01:34→21:05)
[2024-07-08] MEDS: NEURONTIN 200 MG PO ×2 (01:35→21:05)
[2024-07-08] MEDS: LASIX 20 MG PO ×3 (01:36→16:12)
[2024-07-08] MEDS: ELIQUIS 5 MG PO ×3 (01:36→21:03)
[2024-07-08] MEDS: PREPARATION H MAX STRENGTH PAIN RELIEF CREAM RECTAL (01:37)
[2024-07-08] MEDS: MAXIPIME 1000 MG IV ×2 (06:14→17:54)
[2024-07-08] MEDS: STERILE WATER FOR INJECTION 10 ML IV ×2 (06:15→17:54)
[2024-07-08 06:50] LABS: Hematocrit 34.6 % (37.0-47.0); Hemoglobin 10.8 g/dL (12.0-16.0); Mean Corp Hgb Conc. 31.2 g/dL (33.0-37.0); Mean Corpuscular Volume 102.7 fL (81.0-99.0); Mean Platelet Volume 11.2 fL (7.4-10.4); Platelet Count 155 10^3/uL (130-400); Red Blood Cell Count 3.37 10^6/uL (4.20-5.40); Red Cell Dist. Width 13.3 % (11.5-14.5); White Blood Cell Count 18.6 10^3/uL (4.8-10.8)
[2024-07-08 07:10] LABS: ALT (SGPT) 19 U/L (0-35); AST (SGOT) 21 U/L (14-36); Alkaline Phosphatase 66 U/L (38-126); Blood Urea Nitrogen 40 mg/dl (7-17); Calcium 8.4 mg/dl (8.4-10.2); Carbon Dioxide 24 mmol/L (22-30); Chloride 107 mmol/L (98-107); Estimated Creatinine Clearance 32 ml/min; Glucose 84 mg/dl (70-99); Potassium 3.6 mmol/L (3.5-5.1); Sodium 140 mmol/L (135-145); Total Bilirubin 0.8 mg/dl (0.2-1.3); Total Protein 5.3 g/dl (6.3-8.2); eGFR 48.03
--- NOTE | 2024-07-08 08:20 | PHA.VAN.IN ---
Assessment
- Assessment
Renal Function: Appears elevated from baseline (SCR 1.4 --> 1.1 vs ~0.9)
Concomitant Antimicrobials: cefepime
AUC Dosing Plan
- Dosing Variables
Dosing Weight (kg): 78
Dosing CrCl (ml/min): 39
Vd coefficient (L/kg): 0.7
Utilized approximate baseline CrCl as SCR trending down and close to baseline
If renal function does not continue to improve, may require preemptive reduction in dose
- Empiric Dosing
Initial / Loading Dose: 2000mg - 07/08 01:30
Maintenance Regimen: Vanc 1000mg Q24H starting 07/09 0600
Estimated AUC (mcg*h/mL): 507
Estimated Peak (mcg*h/mL): 31.2
Estimated Trough (mcg/ml): 13.4
Estimated Half Life (H): 18.8
- Monitoring
No levels ordered at this time: consider levels in next few days
Pharmacokinetics Vancomycin I
- -
Patient Age: 89
Patient Sex: Female
Vancomycin Day #: 1
Indication: Pulmonary/Respiratory
Requesting Provider: Sha Oviedo
Pertinent Antimicrobial Allergies:
no pertinent antibiotic allergies
Height / Weight:
Height 5 ft 0.5 in
Actual Weight 77.6 kg
Pertinent Past Medical History: BMI ~33
- Vital Signs / Lab Results
Pulse Resp BP Pulse Ox
81 19 118/62 91
07/08/24 06:30 07/08/24 06:30 07/08/24 01:36 07/08/24 06:30
Lab Results - Hematology
07/07/24 07/08/24
15:56 05:57
WBC 19.2 H 18.6 H
Lab Results - Chemistry
07/07/24 07/08/24
15:56 05:57
BUN 40 H 40 H
Creatinine 1.4 H 1.1 H
Estimated Creat Clear 32
Albumin 3.3 L 3.0 L
Microbiology Results
07/07/24 15:56 Influenza Types A & B (LIZ) - Final
Nasal Swab Negative for Influenza A & B, NAAT
Negative results must be combined with clinical observations
and patient history.
Nucleic Acid Amplification test (NAAT)performed on the
[employer] platform.
[2024-07-08] MEDS: PROTONIX 40 MG PO (08:55)
[2024-07-08] MEDS: PREPARATION H MAX STRENGTH PAIN RELIEF CREAM 1 APPLIC RECTAL ×2 (08:55→21:04)
[2024-07-08] MEDS: PACERONE 200 MG PO (08:55)
[2024-07-08] MEDS: FARXIGA 10 MG PO (08:55)
[2024-07-08] MEDS: SENOKOT 17.2 MG PO (08:55)
[2024-07-08] MEDS: NEURONTIN 100 MG PO (08:56)
[2024-07-08] MEDS: MYRBETRIQ EXTENDED RELEASE 50 MG PO (08:56)
--- NOTE | 2024-07-08 10:03 | W.PN.HOSP.TC ---
Today's Communication/Plan
-
Aspiration precautions per
Speech eval.
Antibiotics
Gentle diuresis
Wean off O2 as tolerates
Assessment / Plan
Assessment / Plan
Impression:
Acute hypoxic respiratory insufficiency secondary to pneumonia.
Pneumonia, right lower lobe infiltrate suspect secondary to aspiration
Hiatal hernia
Recent hospitalization with bronchitis completed course of doxycycline and steroid taper discharged on 07/04
Other conditions:
COPD by history
Large hiatal hernia
Paroxysmal atrial fibrillation baseline anticoagulation with Eliquis.
Heart failure reduced EF
CAD, mild nonobstructive.
History of ICH.
History of PE/DVT.
Former smoker.
Depression
Plan:
Acute hypoxic respiratory insufficiency suspected secondary to pneumonia. Given hiatal hernia, there is a reasonable concern for aspiration syndrome.
Volume status closely decompensated, although noted mildly elevated pro CHF BNP of the baseline. Recent interruption with loop diuretics given FLACA. Recent course of corticosteroids with expected volume retention.
Right lower lobe pneumonia with concern for aspiration. Large hiatal hernia.
Speech and swallow evaluation.
Aspiration precautions
PPI
Antibiotics expanded to proximal spectrum including vancomycin and cefepime (MRSA colonized)
Reported with mild hemoptysis. No recurrences since admission. Monitor closely while on anticoagulation.
COPD by history
Exam with coarse diffuse rhonchi without bronchospasm
No indication to extend stable corticosteroid course at this point
Continue COREY
Continue mucolytic's
Acute on chronic CHF reduced EF.
CAD.
Echo 04/12 LVEF 40-45% with global hypokinesis. Severely dilated left atrium. Severely dilated right atrium. Mild to moderate MR. Mild TR with pulmonary hypertension PAP 45-50 mmHg.
Provide additional diuresis with Lasix 40 mg IV on 07/08. Replete potassium. Continue Lasix 20 mg p.o. twice daily after. Monitor volume status and renal function closely.
Continue Farxiga
Paroxysmal A-fib
Currently normal sinus rhythm
Initial concern for prolonged QT/QTc. Repeat EKG within normal limits.
Continue amiodarone
Continue anticoagulation with Eliquis.
Dementia
? Cognitive dysfunction
Continue preadmission regimen including risperidone, gabapentin, escitalopram.
DNR.
DVT prophylaxis/
Anticipated Discharge: > 48 hours
Subjective/Interval History
-
Date of Service: July 08, 2024
Objective Data
-
Labs:
Laboratory Results
07/08/24
05:57
WBC 18.6 H
Hgb 10.8 L
Hct 34.6 L
Plt Count 155
Sodium 140
Potassium 3.6
Chloride 107
Carbon Dioxide 24
BUN 40 H
Creatinine 1.1 H
Glucose 84
Calcium 8.4
Total Bilirubin 0.8
AST 21
ALT 19
Alkaline Phosphatase 66
Vital Signs:
Vital Signs
Temp Pulse Resp BP Pulse Ox
98.6 F 83 18 152/62 93
07/08/24 08:25 07/08/24 08:55 07/08/24 08:25 07/08/24 08:57 07/08/24 08:25
Physical Exam
-
General: Well Developed and No Apparent Distress
HEENT: Normocephalic, Atraumatic and Moist Mucous Membranes
Respiratory: Rhonchi; Negative Wheezes
Cardiac: Regular Rhythm, S1/S2 and Murmur; Negative Rub or Gallop
GI: Soft, Nontender, Nondistended and Normal Bowel Sounds; Negative Organomegaly
Rectal: Deferred by Provider
Musculoskeletal: No Clubbing, No Cyanosis and No Edema
Skin: Negative Rash
Neuro: Nonfocal/Grossly Intact
[2024-07-08] MEDS: MUCINEX 600 MG PO ×2 (10:37→21:04)
[2024-07-08] MEDS: LASIX 40 MG IV (10:37)
[2024-07-08] MEDS: RISPERDAL 0.25 MG PO (10:37)
[2024-07-08] MEDS: LEXAPRO 10 MG PO (10:37)
[2024-07-08] MEDS: KCL 20 MEQ PO (10:37)
--- NOTE | 2024-07-08 14:10 | PTOTSP ---
Speech Therapy Evaluation:
Pt presents with functional oropharyngeal swallow at bedside with no overt s/sx of aspiration across PO trials and passing 3oz swallow screen, though cannot rule out silent aspiration given increased WBC count and opacity in RLL on CXR. Pt received
VSE in Mar 2023 for similar presentation with opacity in RLL, in which oropharyngeal swallow was WFL and it was recommended pt continue regular/thin liquid diet. It is important to note that pt remains at increased risk of post-prandial aspiration
given esophageal hx with large hiatal hernia, GERD, and VSE showing residue in esophagus during esophageal sweep without retrograde flow.
Recommend:
1. Continue regular solids and thin liquids
2. Medications as tolerated
3. Strategies: small single sips/bites, slow rate, upright to 90 degrees for meals, reflux precautions (upright for at least 30 minutes after meals) given history of GERD and hiatal hernia
4. IN FLIGHT TECHNICIAN to follow re: tolerance of diet verus need for repeat instrumental assessment
[2024-07-08] MEDS: LOPRESSOR 2.5 MG IV (22:49)
--- NOTE | 2024-07-09 02:44 | DOWNTIME ---
There was a [employer] Client Quick Technician Downtime on 07/09/2024 from 0100 to 07/09/2023 at 0235 . Downtime documentation of patient's care, including medication administrations, has been reconciled in the electronic record per guidelines. Refer to the
patient's paper chart under the miscellaneous tab to see printed paper medication records and downtime forms.
--- NOTE | 2024-07-09 02:50 | PTCARENOTE ---
Pt transferred to unit on 07/08 1999. Pt pulled over from stretcher to bed. VS obtained, pt with elevated temp of 100.6. Pt orientated to room temp rechecked at 2200 97.9. No c/o pain. Pt able to answer orientation questions correctly, but very
confused, anxious and forgetful. Pt placed on bed alarm and tele and educated to use call alejandro for assistance. Pt also tachycardic on tele. No s/s reported, pt asymptomatic and resting in bed. Pt unaware if she took her daily morning meds prior to
coming to hospital. NUCLEAR OFFICER notified, 1x dose IV 2.5mg lopressor administered with minimal effect.
[2024-07-09 03:05] VITALS: BP 97/58
[2024-07-09] MEDS: VANCOCIN 200 IV (05:02)
[2024-07-09] MEDS: STERILE WATER FOR INJECTION 10 ML IV ×2 (05:03→18:16)
[2024-07-09] MEDS: MAXIPIME 1000 MG IV ×2 (05:03→18:16)
[2024-07-09 06:00] VITALS: BMI 29.8
[2024-07-09 07:30] VITALS: BP 98/70
[2024-07-09 07:54] LABS: % Basophils 0.2 % (0-2); % Eosinophils 2.2 % (0-6); % Immature Granulocytes 2.5 % (0-0.5); % Lymphocytes 17.2 % (20.5-51.1); % Monocytes 5.8 % (1.7-9.3); % Neutrophils 72.1 % (42.2-75.2); Absolute Eosinophils 0.3 10^3/uL (0-0.7); Absolute Immature Granulocytes 0.3 10^3/uL (0-0.05); Absolute Lymphocytes 1.9 10^3/uL (1.2-3.4); Absolute Monocytes 0.7 10^3/uL (0.1-0.6); Absolute Neutrophils 8.1 10^3/uL (1.4-6.5); Hematocrit 35.4 % (37.0-47.0); Mean Corp Hgb Conc. 31.1 g/dL (33.0-37.0); Mean Corpuscular Hgb 31.6 pg (27.0-31.0); Mean Corpuscular Volume 101.7 fL (81.0-99.0); Mean Platelet Volume 11.2 fL (7.4-10.4); Nucleated Red Blood Cells % 0 %; Platelet Count 160 10^3/uL (130-400); Red Blood Cell Count 3.48 10^6/uL (4.20-5.40); White Blood Cell Count 11.2 10^3/uL (4.8-10.8)
[2024-07-09 08:39] LABS: Blood Urea Nitrogen 30 mg/dl (7-17); Calcium 8.2 mg/dl (8.4-10.2); Carbon Dioxide 27 mmol/L (22-30); Chloride 99 mmol/L (98-107); Estimated Creatinine Clearance 29 ml/min; Glucose 111 mg/dl (70-99); Sodium 134 mmol/L (135-145); eGFR 43.27
[2024-07-09] MEDS: SENOKOT 17.2 MG PO (09:00)
[2024-07-09] MEDS: MYRBETRIQ EXTENDED RELEASE 50 MG PO (09:01)
[2024-07-09] MEDS: MUCINEX 600 MG PO ×2 (09:01→20:03)
[2024-07-09] MEDS: LEXAPRO 10 MG PO (09:02)
[2024-07-09] MEDS: FARXIGA 10 MG PO (09:02)
[2024-07-09] MEDS: RISPERDAL 0.25 MG PO (09:02)
[2024-07-09] MEDS: KCL 40 MEQ PO (09:02)
[2024-07-09] MEDS: ELIQUIS 5 MG PO ×2 (09:02→20:03)
[2024-07-09] MEDS: PROTONIX 40 MG PO (09:02)
[2024-07-09] MEDS: NEURONTIN 100 MG PO (09:03)
[2024-07-09] MEDS: LASIX PO (09:08)
[2024-07-09] MEDS: PACERONE 200 MG PO (09:16)
[2024-07-09] MEDS: PREPARATION H MAX STRENGTH PAIN RELIEF CREAM 1 APPLIC RECTAL ×2 (10:18→20:03)
--- NOTE | 2024-07-09 11:08 | PN.CDI ---
CDI
- -
CDI:
Physician Documentation Request
Admit Date: 07/07/24 20:29
Dear Doctor Gabino,
Please review the following and provide your response in the progress notes.
Clinical Indicators:
Pt admitted with Aspiration PNA on Vancomycin/Cefepime / Acute on Chronic HFrEF/FLACA
On admission Tmax 100.6, HR 101, Respirations 33, WBC 19.2
Please clarify which of the following most accurately describes the status of the patient's infection:
Sepsis-POA
- Systemic manifestations of infection, with 2 or more SIRS criteria which include:
- Fever >100.4 degrees F or hypothermia < 96.8 degrees F
- Leukocytosis - WBC > 12,000 or leukopenia - WBC < 4,000 or > 10% bands
- Tachycardia > 90 beats per minute
- Tachypnea - RR > 20 breaths per minute or PaCO2 , 32mmHg
Source: Merck Manual 2013
Aspiration Pneumonia only , Without Systemic Illness
Other ( please specify)
Use of terms such as suspected, likely, concern for, or probable (associated with a specific diagnosis that is being evaluated, monitored, or treated as if it exists) are acceptable and can be coded in the inpatient setting, when documented at the
time of discharge.
Thank you,
Sharda Gutierrez RN
CDI Specialist
[place] [facility]
Please use your independent medical judgment in providing your response.
--- NOTE | 2024-07-09 11:18 | PHA.VAN.FU ---
Addendum entered and electronically signed by [facility] 07/09/24 14:44:
PEAK- 07/10 @ 0830
TROUGH- 07/11 @ 0530
Original Note:
Vancomycin Assessment / Plan
- Assessment
Renal Function: SCR Increasing
WBC's are: Trending Down
In the past 24 hrs, patient has been: Afebrile
Concomitant Antimicrobials: CEFEPIME
- Dosing Plan
Adjust Regimen to: vancomycin 750 mg q24h
New Regimen Predicts: AUC (535), Peak (30.3), Trough (15.7)
- Monitoring Plan
No level(s) ordered at this time: consider levels in next few days
MRSA Screen: Ordered per protocol (result pending)
- Follow Up
Pharmacy will continue to follow.
Vancomycin Follow UP
- -
Patient Age: 89
Patient Sex: Female
Vancomycin Day #: 2
Indication: Pulmonary/Respiratory
Requesting Provider: Sha Oviedo
Pertinent Antimicrobial Allergies:
no pertinent antibiotic allergies
Height / Weight:
Height 5 ft 1 in
Actual Weight 71.384 kg
IBW in k.8
Adjusted BW in k.2
Pertinent Past Medical History: BMI ~33
- Vital Signs / Lab Results
Temp Pulse Resp BP Pulse Ox
97.9 F 117 24 98/70 95
07/09/24 07:30 07/09/24 09:16 07/09/24 07:30 07/09/24 09:16 07/09/24 10:00
Lab Results - Hematology
07/07/24 07/08/24 07/09/24
15:56 05:57 06:25
WBC 19.2 H 18.6 H 11.2 H
Lab Results - Chemistry
07/07/24 07/08/24 07/09/24
15:56 05:57 06:25
BUN 40 H 40 H 30 H
Creatinine 1.4 H 1.1 H 1.2 H
Estimated Creat Clear 32 29
Albumin 3.3 L 3.0 L
Microbiology Results
07/07/24 19:28 Blood Culture - Preliminary
Blood/Venous No Growth in 24 hours- Final report to follow
07/07/24 19:28 Blood Culture - Preliminary
Blood/Venous No Growth in 24 hours- Final report to follow
07/08/24 13:41 C. difficile GDH Antigen & Toxins - Final
Feces/Stool Negative for toxigenic C.difficile
07/07/24 15:56 Influenza Types A & B (LIZ) - Final
Nasal Swab Negative for Influenza A & B, NAAT
Negative results must be combined with clinical observations
and patient history.
Nucleic Acid Amplification test (NAAT)performed on the
[employer] platform.
--- NOTE | 2024-07-09 11:50 | CM ---
Pt had recent admission (07/02-07/04). Per chart, pt lives at [facility]- Memory care unit. She is assisted in all ADLs. Pt uses a walker primarily to ambulate. Pt prev d/c back to [facility] w/ rehab needs and was accepted.
Pt currently on 4L O2, wean as tolerated.
Speech eval today. Therapy currently recommended skilled rehab at this time
CM placed referral to [facility]
PCP: Dr. Ced Julien
Pharmacy: [facility]
Pt will need auth prior to d/c
Plan: [facility] SNF
[2024-07-09 12:01] VITALS: BP 129/59
--- NOTE | 2024-07-09 12:33 | PTOTSP ---
Video Swallow Examination:
Patient presents with functional oropharyngeal swallow. Trace transient laryngeal penetration with thin liquids via consecutive cup sips, thin liquids via single/consecutive straw sips, and mildly thick liquids via consecutive cup sips. This is
WFL. No prandial aspiration occurred during the study, however pt remains at increased risk of post-prandial aspiration given known history of large hiatal hernia and GERD. Please see patient care note for full details of penetration/aspiration and
swallowing physiology.
Recommend:
1. Continue regular, thin Liquids
2. Medications as tolerated
3. Strategies: small single sips/bites, slow rate, upright to 90 degrees for meals, reflux precautions (upright for at least 30 minutes after meals) given history of GERD and hiatal hernia
4. No further dysphagia therapy warranted at this time. ROSS CARRIER DRIVER to s/o. Please reconsult as appropriate.
[2024-07-09 15:51] VITALS: BP 102/56
--- NOTE | 2024-07-09 16:01 | W.PN.HOSP.TC ---
Today's Communication/Plan
-
Continue antibiotics covering aspiration
Attempt to wean off oxygen
Replete potassium
Assessment / Plan
Assessment / Plan
Impression:
Acute hypoxic respiratory insufficiency secondary to pneumonia.
Pneumonia, right lower lobe infiltrate suspect secondary to aspiration
Hiatal hernia
Hypokalemia
Recent hospitalization with bronchitis completed course of doxycycline and steroid taper discharged on 07/04
Other conditions:
COPD by history
Large hiatal hernia
Paroxysmal atrial fibrillation baseline anticoagulation with Eliquis.
Heart failure reduced EF
CAD, mild nonobstructive.
History of ICH.
History of PE/DVT.
Former smoker.
Depression
Plan:
Acute hypoxic respiratory insufficiency suspected secondary to pneumonia. Given hiatal hernia, there is a reasonable concern for aspiration syndrome.
Volume status closely decompensated, although noted mildly elevated pro CHF BNP of the baseline. Recent interruption with loop diuretics given FLACA. Recent course of corticosteroids with expected volume retention.
Right lower lobe pneumonia secondary to aspiration in a patient with large hiatal hernia
Speech and swallow evaluation with no significant oropharyngeal dysfunction
Aspiration precautions
PPI
Antibiotics expanded to proximal spectrum including vancomycin and cefepime (MRSA colonized)
Reported with mild hemoptysis. No recurrences since admission. Monitor closely while on anticoagulation.
COPD by history
Exam with coarse diffuse rhonchi without bronchospasm
No indication to extend stable corticosteroid course at this point
Continue COREY
Continue mucolytic's
Acute on chronic CHF reduced EF.
CAD.
Echo 04/12 LVEF 40-45% with global hypokinesis. Severely dilated left atrium. Severely dilated right atrium. Mild to moderate MR. Mild TR with pulmonary hypertension PAP 45-50 mmHg.
Provide additional diuresis with Lasix 40 mg IV on 07/08. Replete potassium. Continue Lasix 20 mg p.o. twice daily after. Monitor volume status and renal function closely.
Continue Farxiga
Paroxysmal A-fib
Currently normal sinus rhythm
Initial concern for prolonged QT/QTc. Repeat EKG within normal limits.
Continue amiodarone
Continue anticoagulation with Eliquis.
Dementia
? Cognitive dysfunction
Continue preadmission regimen including risperidone, gabapentin, escitalopram.
DNR.
DVT prophylaxis/
Anticipated Discharge: 24 - 48 hours
Subjective/Interval History
-
Date of Service: July 09, 2024
Objective Data
-
Labs:
Laboratory Results
07/09/24
06:25
WBC 11.2 H
Hgb 11.0 L
Hct 35.4 L
Plt Count 160
Sodium 134 L
Potassium 3.0 L
Chloride 99
Carbon Dioxide 27
BUN 30 H
Creatinine 1.2 H
Glucose 111 H
Calcium 8.2 L
Vital Signs:
Vital Signs
Temp Pulse Resp BP Pulse Ox
98.1 F 103 20 102/56 96
07/09/24 15:51 07/09/24 15:51 07/09/24 15:51 07/09/24 15:51 07/09/24 15:51
I&O
07/08/24 07/09/24 07/10/24
06:59 06:59 06:59
Intake Total 680 / 680
Output Total 400 / 400
Balance 280 / 280
Physical Exam
-
General: Well Developed and No Apparent Distress
HEENT: Normocephalic, Atraumatic and Moist Mucous Membranes
Respiratory: Rhonchi; Negative Wheezes
Cardiac: Regular Rhythm, S1/S2 and Murmur; Negative Rub or Gallop
GI: Soft, Nontender, Nondistended and Normal Bowel Sounds; Negative Organomegaly
Rectal: Deferred by Provider
Musculoskeletal: No Clubbing, No Cyanosis and No Edema
Skin: Negative Rash
Neuro: Nonfocal/Grossly Intact
[2024-07-09 20:00] VITALS: BP 123/62
[2024-07-09] MEDS: NEURONTIN 200 MG PO (21:40)
[2024-07-09] MEDS: CLARITIN 10 MG PO (21:40)
[2024-07-09 23:13] VITALS: BP 128/71
[2024-07-10] VITALS (7 sets, daily range): BP systolic 108–134; BP diastolic 54–71; PULSE 80; O2SAT 96; BMI 29.0
[2024-07-10] MEDS: MAXIPIME 1000 MG IV ×2 (05:45→18:14)
[2024-07-10] MEDS: VANCOCIN 150 IV (05:45)
[2024-07-10] MEDS: STERILE WATER FOR INJECTION 10 ML IV ×2 (05:46→18:14)
[2024-07-10 07:44] LABS: % Basophils 0.2 % (0-2); % Eosinophils 1.9 % (0-6); % Lymphocytes 21.7 % (20.5-51.1); % Monocytes 8.3 % (1.7-9.3); % Neutrophils 62.9 % (42.2-75.2); Absolute Eosinophils 0.2 10^3/uL (0-0.7); Absolute Immature Granulocytes 0.5 10^3/uL (0-0.05); Absolute Monocytes 0.8 10^3/uL (0.1-0.6); Absolute Neutrophils 5.7 10^3/uL (1.4-6.5); Hematocrit 33.1 % (37.0-47.0); Hemoglobin 10.6 g/dL (12.0-16.0); Mean Corpuscular Hgb 31.8 pg (27.0-31.0); Mean Corpuscular Volume 99.4 fL (81.0-99.0); Mean Platelet Volume 10.5 fL (7.4-10.4); Nucleated Red Blood Cells % 0 %; Platelet Count 192 10^3/uL (130-400); Red Blood Cell Count 3.33 10^6/uL (4.20-5.40); Red Cell Dist. Width 12.7 % (11.5-14.5); White Blood Cell Count 9.1 10^3/uL (4.8-10.8)
[2024-07-10 08:01] LABS: Blood Urea Nitrogen 30 mg/dl (7-17); Calcium 8.1 mg/dl (8.4-10.2); Carbon Dioxide 29 mmol/L (22-30); Chloride 102 mmol/L (98-107); Estimated Creatinine Clearance 28 ml/min; Glucose 130 mg/dl (70-99); Potassium 3.4 mmol/L (3.5-5.1); Sodium 134 mmol/L (135-145); eGFR 43.27
[2024-07-10] MEDS: PREPARATION H MAX STRENGTH PAIN RELIEF CREAM 1 APPLIC RECTAL ×2 (08:17→21:07)
[2024-07-10] MEDS: MYRBETRIQ EXTENDED RELEASE 50 MG PO (08:18)
[2024-07-10] MEDS: NEURONTIN 100 MG PO (08:25)
[2024-07-10] MEDS: FARXIGA 10 MG PO (08:25)
[2024-07-10] MEDS: ELIQUIS 5 MG PO ×2 (08:26→21:07)
[2024-07-10] MEDS: LEXAPRO 10 MG PO (08:26)
[2024-07-10] MEDS: PACERONE 200 MG PO (08:26)
[2024-07-10] MEDS: RISPERDAL 0.25 MG PO (08:26)
[2024-07-10] MEDS: PROTONIX 40 MG PO (08:26)
[2024-07-10] MEDS: SENOKOT 17.2 MG PO (08:26)
[2024-07-10] MEDS: MUCINEX 600 MG PO ×2 (08:26→21:07)
--- NOTE | 2024-07-10 10:26 | PHA.VAN.FU ---
Vancomycin Assessment / Plan
- Assessment
Renal Function: Stable
WBC's are: WNL
In the past 24 hrs, patient has been: Afebrile
Concomitant Antimicrobials: cefepime
- Dosing Plan
Adjust Regimen to: dosing by level
Will change to dose by level to follow more closely given estimated half-life > 24H
- Monitoring Plan
Random Level: 07/11 599
- Follow Up
Pharmacy will continue to follow.
Vancomycin Follow UP
- -
Patient Age: 89
Patient Sex: Female
Vancomycin Day #: 3
Indication: Pulmonary/Respiratory
Requesting Provider: Sha Oviedo
Pertinent Antimicrobial Allergies:
no pertinent antibiotic allergies
Height / Weight:
Height 5 ft 1 in
Actual Weight 69.57 kg
IBW in k.8
Adjusted BW in k.2
Pertinent Past Medical History: BMI ~33
- Vital Signs / Lab Results
Temp Pulse Resp BP Pulse Ox
97.7 F 86 18 116/68 91
07/10/24 08:12 07/10/24 08:12 07/10/24 08:12 07/10/24 08:12 07/10/24 08:12
Lab Results - Hematology
07/07/24 07/08/24 07/09/24
15:56 05:57 06:25
WBC 19.2 H 18.6 H 11.2 H
07/10/24
07:09
WBC 9.1
Lab Results - Chemistry
07/07/24 07/08/24 07/09/24
15:56 05:57 06:25
BUN 40 H 40 H 30 H
Creatinine 1.4 H 1.1 H 1.2 H
Estimated Creat Clear 32 29
Albumin 3.3 L 3.0 L
07/10/24
07:09
BUN 30 H
Creatinine 1.2 H
Estimated Creat Clear 28
Albumin
Microbiology Results
07/08/24 15:42 MRSA Screen - Final
Nose Staph aureus MRSA
07/07/24 19:28 Blood Culture - Preliminary
Blood/Venous No Growth in 48 hours- Final report to follow
07/07/24 19:28 Blood Culture - Preliminary
Blood/Venous No Growth in 48 hours- Final report to follow
07/08/24 13:41 C. difficile GDH Antigen & Toxins - Final
Feces/Stool Negative for toxigenic C.difficile
[2024-07-10] MEDS: KCL 40 MEQ PO (11:22)
[2024-07-10] MEDS: ANESTHETIC LOZENGE 1 LOZENGE PO ×2 (11:29→21:22)
--- NOTE | 2024-07-10 15:22 | W.PN.HOSP.TC ---
Today's Communication/Plan
-
Continue IV antibiotics for another 24 hours plan to transition to oral tomorrow.
Hold Lasix and monitor creatinine
Wean off oxygen as tolerated
PT assessment
Assessment / Plan
Assessment / Plan
Impression:
Acute hypoxic respiratory insufficiency secondary to pneumonia.
Pneumonia, right lower lobe infiltrate suspect secondary to aspiration
Hiatal hernia
Hypokalemia
Recent hospitalization with bronchitis completed course of doxycycline and steroid taper discharged on 07/04
Other conditions:
COPD by history
Large hiatal hernia
Paroxysmal atrial fibrillation baseline anticoagulation with Eliquis.
Heart failure reduced EF
CAD, mild nonobstructive.
History of ICH.
History of PE/DVT.
Former smoker.
Depression
Plan:
Acute hypoxic respiratory insufficiency suspected secondary to pneumonia. Given hiatal hernia, there is a reasonable concern for aspiration syndrome.
Volume status closely decompensated, although noted mildly elevated pro CHF BNP of the baseline. Recent interruption with loop diuretics given FLACA. Recent course of corticosteroids with expected volume retention.
Right lower lobe pneumonia secondary to aspiration in a patient with large hiatal hernia
Speech and swallow evaluation with no significant oropharyngeal dysfunction
Aspiration precautions
PPI
Antibiotics expanded to proximal spectrum including vancomycin and cefepime (MRSA colonized)
Reported with mild hemoptysis. No recurrences since admission. Monitor closely while on anticoagulation.
COPD by history
Exam with coarse diffuse rhonchi without bronchospasm
No indication to extend stable corticosteroid course at this point
Continue COREY
Continue mucolytic's
Acute on chronic CHF reduced EF.
CAD.
Echo 04/12 LVEF 40-45% with global hypokinesis. Severely dilated left atrium. Severely dilated right atrium. Mild to moderate MR. Mild TR with pulmonary hypertension PAP 45-50 mmHg.
Provide additional diuresis with Lasix 40 mg IV on 07/08. Replete potassium. Hold oral Lasix for another 24 hours
Continue Farxiga
Paroxysmal A-fib
Currently normal sinus rhythm
Initial concern for prolonged QT/QTc. Repeat EKG within normal limits.
Continue amiodarone
Continue anticoagulation with Eliquis.
Dementia
? Cognitive dysfunction
Continue preadmission regimen including risperidone, gabapentin, escitalopram.
DNR.
DVT prophylaxis/
Anticipated Discharge: 24 - 48 hours
Subjective/Interval History
-
Date of Service: July 10, 2024
Objective Data
-
Labs:
Laboratory Results
07/10/24
07:09
WBC 9.1
Hgb 10.6 L
Hct 33.1 L
Plt Count 192
Sodium 134 L
Potassium 3.4 L
Chloride 102
Carbon Dioxide 29
BUN 30 H
Creatinine 1.2 H
Glucose 130 H
Calcium 8.1 L
Vital Signs:
Vital Signs
Temp Pulse Resp BP Pulse Ox
98.7 F 85 18 114/68 96
07/10/24 15:14 07/10/24 15:14 07/10/24 15:14 07/10/24 15:14 07/10/24 15:14
I&O
07/09/24 07/10/24 07/11/24
06:59 06:59 06:59
Intake Total 680 / 680 1080 / 1080
Output Total 400 / 400
Balance 280 / 280 1080 / 1080
Physical Exam
-
General: Well Developed and No Apparent Distress
HEENT: Normocephalic, Atraumatic and Moist Mucous Membranes
Respiratory: Rhonchi; Negative Wheezes
Cardiac: Regular Rhythm, S1/S2 and Murmur; Negative Rub or Gallop
GI: Soft, Nontender, Nondistended and Normal Bowel Sounds; Negative Organomegaly
Rectal: Deferred by Provider
Musculoskeletal: No Clubbing, No Cyanosis and No Edema
Skin: Negative Rash
Neuro: Nonfocal/Grossly Intact
--- NOTE | 2024-07-10 16:09 | CM ---
clinic manager reviewed patient's chart and met with patient and patient is on personal care at [facility], plan now is for skilled placement, referral sent to [facility] for skilled placement.
Plan [facility] for skilled placement, patient will need Auth from insurance.
[2024-07-10] MEDS: TYLENOL 1000 MG PO ×2 (18:14→22:05)
[2024-07-10] MEDS: FLUSH (NSS) 1 FLUSH IV (18:16)
[2024-07-10] MEDS: CLARITIN 10 MG PO (21:06)
[2024-07-10] MEDS: NEURONTIN 200 MG PO (21:06)
[2024-07-11 03:27] VITALS: BP 130/77
[2024-07-11 05:21] VITALS: BMI 28.6
[2024-07-11] MEDS: STERILE WATER FOR INJECTION 10 ML IV (06:04)
[2024-07-11] MEDS: MAXIPIME 1000 MG IV (06:04)
[2024-07-11 07:00] VITALS: BP 112/61
[2024-07-11 08:10] LABS: Vancomycin Random 10.1 ug/ml
[2024-07-11 08:29] LABS: Blood Urea Nitrogen 25 mg/dl (7-17); Calcium 8.5 mg/dl (8.4-10.2); Carbon Dioxide 28 mmol/L (22-30); Chloride 102 mmol/L (98-107); Estimated Creatinine Clearance 28 ml/min; Glucose 100 mg/dl (70-99); Potassium 3.9 mmol/L (3.5-5.1); Sodium 136 mmol/L (135-145); eGFR 43.27
[2024-07-11] MEDS: MYRBETRIQ EXTENDED RELEASE 50 MG PO (09:03)
[2024-07-11] MEDS: TYLENOL 1000 MG PO ×3 (09:04→22:17)
[2024-07-11] MEDS: ELIQUIS 5 MG PO ×2 (09:04→20:29)
[2024-07-11] MEDS: SENOKOT 17.2 MG PO (09:04)
[2024-07-11] MEDS: FARXIGA 10 MG PO (09:04)
[2024-07-11] MEDS: PROTONIX 40 MG PO (09:04)
[2024-07-11] MEDS: LEXAPRO 10 MG PO (09:04)
[2024-07-11] MEDS: RISPERDAL 0.25 MG PO (09:04)
[2024-07-11] MEDS: NEURONTIN 100 MG PO (09:04)
[2024-07-11] MEDS: MUCINEX 600 MG PO ×2 (09:04→20:29)
[2024-07-11] MEDS: PACERONE 200 MG PO (09:04)
[2024-07-11] MEDS: PREPARATION H MAX STRENGTH PAIN RELIEF CREAM 1 APPLIC RECTAL ×2 (09:05→20:29)
--- NOTE | 2024-07-11 09:30 | PHA.VAN.FU ---
Vancomycin Assessment / Plan
- Assessment
Renal Function: Stable
WBC's are: WNL
In the past 24 hrs, patient has been: Afebrile
Concomitant Antimicrobials: cefepime
- Assessment - Therapeutic Drug Monitoring
Random Level: 10.1 - drawn ~25.5 H after previous dose of 750mg
- Dosing Plan
Dosing by Level: Re-dose today (Vanc 750mg)
Dosing Comments: may consider scheduling dose if level stable
- Monitoring Plan
Random Level: 07/12 06
- Follow Up
Pharmacy will continue to follow.
Vancomycin Follow UP
- -
Patient Age: 89
Patient Sex: Female
Vancomycin Day #: 4
Indication: Pulmonary/Respiratory
Requesting Provider: Sha Oviedo
Pertinent Antimicrobial Allergies:
no pertinent antibiotic allergies
Height / Weight:
Height 5 ft 1 in
Actual Weight 68.691 kg
IBW in k.8
Adjusted BW in k.2
Pertinent Past Medical History: BMI ~33
- Vital Signs / Lab Results
Temp Pulse Resp BP Pulse Ox
97.6 F 93 20 112/61 95
07/11/24 07:00 07/11/24 07:00 07/11/24 07:00 07/11/24 07:00 07/11/24 07:00
Lab Results - Hematology
07/09/24 07/10/24
06:25 07:09
WBC 11.2 H 9.1
Lab Results - Chemistry
07/09/24 07/10/24 07/11/24
06: 07:09 07:13
BUN 30 H 30 H 25 H
Creatinine 1.2 H 1.2 H 1.2 H
Estimated Creat Clear 29 28 28
Microbiology Results
07/07/24 19:28 Blood Culture - Preliminary
Blood/Venous No Growth in 72 hours- Final report to follow
07/07/24 19:28 Blood Culture - Preliminary
Blood/Venous No Growth in 72 hours- Final report to follow
07/08/24 15:42 MRSA Screen - Final
Nose Staph aureus MRSA
Therapeutic Drug Monitoring
Random Vancomycin 10.1 ug/ml 07/11/24 07:13
[2024-07-11] MEDS: VANCOCIN 150 IV (10:09)
[2024-07-11 11:00] VITALS: BP 106/63
--- NOTE | 2024-07-11 13:24 | W.DS.TRANS ---
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
-
Discharge Instructions:
Discharge Diagnosis/Procedures Impression:
Acute hypoxic respiratory insufficiency
secondary to pneumonia.
Pneumonia, right lower lobe infiltrate suspect
secondary to aspiration
Hiatal hernia
Hypokalemia
Recent hospitalization with bronchitis completed
course of doxycycline and steroid taper
discharged on 07/04
Other conditions:
COPD by history
Large hiatal hernia
Paroxysmal atrial fibrillation baseline
anticoagulation with Eliquis.
Heart failure reduced EF
CAD, mild nonobstructive.
History of ICH.
History of PE/DVT.
Former smoker.
Depression
Diet Regular
Instructions:
Stand-Alone Forms:
Changes to Home Medications: Yes
Discharge Medications:
DC Medications w/original date entered in [employer]
escitalopram oxalate 10 mg tablet 10 mg PO DAILY Mental Health/Anxiety 03/26/12
mirabegron 50 mg tablet,extended release 24 hr (Myrbetriq) 50 mg PO DAILY Urinary Issue 06/07/20
mupirocin 2 % topical ointment 1 applic topical [id number] PRN SKIN IRRITATION 04/04/23
risperidone 0.25 mg tablet 0.25 mg PO DAILY Mental Health/Anxiety 04/04/23
sennosides 8.6 mg tablet (senna) 17.2 mg PO DAILY Constipation 04/04/23
amiodarone 200 mg tablet (Pacerone) 200 mg PO DAILY #30 tabs 04/26/23
apixaban 5 mg tablet (Eliquis) 5 mg PO BID #60 tabs 04/26/23
dapagliflozin propanediol 10 mg tablet (Farxiga) 10 mg PO DAILY #30 tabs 04/26/23
acetaminophen 500 mg tablet 1,000 mg PO TID Pain 06/21/24
furosemide 20 mg tablet 20 mg PO BID Fluid Retention/Swelling 06/21/24
gabapentin 100 mg capsule 100 mg PO DAILY Neurological Condition 06/21/24
gabapentin 100 mg capsule 200 mg PO HS Neurological Condition 06/21/24
ipratropium 0.5 mg-albuterol 3 mg (2.5 mg base)/3 mL nebulization soln 3 ml inhalation R Q4 Lung/Breathing Issues 06/21/24
lidocaine 5 %-phenylephrine 0.25 %-glycern 14.4 %-petrolatm 15 % cream (Preparation H Rapid Relief-Lidocaine) 1 applic topical BID hemorrhoids 06/21/24
loratadine 10 mg tablet 10 mg PO HS Allergies 06/21/24
omeprazole 20 mg capsule,delayed release 40 mg PO DAILY Gastrointestinal Issue 06/21/24
polyethylene glycol 3350 17 gram oral powder packet (Miralax) 17 g PO DAILYPRN PRN CONSTIPATION 06/21/24
prochlorperazine maleate 10 mg tablet 10 mg PO Q6HPRN PRN NAUSEA/VOMITING 06/21/24
Cepacol (with menthol) 1 karthik PO Q4HPRN PRN sore throat 07/07/24
ipratropium 0.5 mg-albuterol 3 mg (2.5 mg base)/3 mL nebulization soln 3 ml inhalation R Q4HPRN PRN sob 07/07/24
amoxicillin 875 mg-potassium clavulanate 125 mg tablet 1 tab PO Q12H #10 tabs 07/11/24
guaifenesin 600 mg tablet, extended release 12 hr 600 mg PO Q12 #20 tabs 07/11/24
lorazepam 0.5 mg tablet 0.5 mg PO [id number] PRN anxiety #14 tabs 07/11/24
Home Medication Changes
Augmentin for additional 5 days of treatment
Pending Results: No
--- NOTE | 2024-07-11 13:26 | CM ---
Addendum entered by Arianna Valentine 07/11/24 16:24:
Please call [facility] [phone] to check on Auth for patient.
Addendum entered by Arianna Valentine 07/11/24 16:06:
[facility]
Report [phone]

Addendum entered by Arianna Valentine 07/11/24 15:21:
Daughter or son to transport patient when approved to [facility].
Addendum entered by Arianna Valentine 07/11/24 14:39:
manager tax reached out to patient's insurance [employer], and pending Auth is [id number].
Addendum entered by Arianna Valentine 07/11/24 13:41:
Per admissions at [facility] they will accept patient today. Need Auth.
Original Note:
Chart reviewed and recommendation is for skilled placement referral has been sent to [facility] skilled. Waiting on determinations from [facility].
Plan; Skilled placement at [facility] when stable.
--- NOTE | 2024-07-11 13:38 | W.PN.HOSP.TC ---
Today's Communication/Plan
-
Transition to oral antibiotics per
Discharge planning
Assessment / Plan
Assessment / Plan
Impression:
Acute hypoxic respiratory insufficiency secondary to pneumonia.
Pneumonia, right lower lobe infiltrate suspect secondary to aspiration
Hiatal hernia
Hypokalemia
Recent hospitalization with bronchitis completed course of doxycycline and steroid taper discharged on 07/04
Other conditions:
COPD by history
Large hiatal hernia
Paroxysmal atrial fibrillation baseline anticoagulation with Eliquis.
Heart failure reduced EF
CAD, mild nonobstructive.
History of ICH.
History of PE/DVT.
Former smoker.
Depression
Plan:
Acute hypoxic respiratory insufficiency suspected secondary to pneumonia. Given hiatal hernia, there is a reasonable concern for aspiration syndrome.
Right lower lobe pneumonia secondary to aspiration in a patient with large hiatal hernia
Speech and swallow evaluation with no significant oropharyngeal dysfunction
Aspiration precautions
PPI
MRSA colonization noted.
Clinically doubt this is a staphylococcal pneumonia
Antibiotics cefepime vancomycin consolidated to Augmentin: 07/11. Will give additional oral therapy through 07/16.
COPD by history
Exam with coarse diffuse rhonchi without bronchospasm
No indication to extend stable corticosteroid course at this point
Continue COREY
Continue mucolytic's
Acute on chronic CHF reduced EF.
CAD.
Echo 04/12 LVEF 40-45% with global hypokinesis. Severely dilated left atrium. Severely dilated right atrium. Mild to moderate MR. Mild TR with pulmonary hypertension PAP 45-50 mmHg.
Provide additional diuresis with Lasix 40 mg IV on 07/08. Replete potassium. With slightly elevated creatinine of 1.2 hold Lasix and resume on 07/13 @ AM.
Continue Farxiga
Paroxysmal A-fib
Currently normal sinus rhythm
Initial concern for prolonged QT/QTc. Repeat EKG within normal limits.
Continue amiodarone
Continue anticoagulation with Eliquis.
Dementia
? Cognitive dysfunction
Continue preadmission regimen including risperidone, gabapentin, escitalopram.
DNR.
DVT prophylaxis/
Ongoing goals of care discussion with patient's daughter at the bedside
Patient is 89 years old with known aspiration syndrome, progressive cognitive decline and frequent hospitalizations. Patient's daughter inquired about hospice option. Suggested to consider hospice transition outpatient at the nursing facility in
case further decline or any recurrent and acute infection with rapid decompensation.
Anticipated Discharge: Within 24 hours
Subjective/Interval History
-
Date of Service: July 11, 2024
Objective Data
-
Labs:
Laboratory Results
07/11/24
07:13
Sodium 136
Potassium 3.9
Chloride 102
Carbon Dioxide 28
BUN 25 H
Creatinine 1.2 H
Glucose 100 H
Calcium 8.5
Vital Signs:
Vital Signs
Temp Pulse Resp BP Pulse Ox
97.8 F 94 22 106/63 92
07/11/24 11:00 07/11/24 11:00 07/11/24 11:00 07/11/24 11:00 07/11/24 13:04
I&O
07/10/24 07/11/24 07/12/24
06:59 06:59 06:59
Intake Total 1080 / 1080 1080 / 1080
Balance 1080 / 1080 1080 / 1080
Physical Exam
-
General: Well Developed and No Apparent Distress
HEENT: Normocephalic, Atraumatic and Moist Mucous Membranes
Respiratory: Rhonchi; Negative Wheezes
Cardiac: Regular Rhythm, S1/S2 and Murmur; Negative Rub or Gallop
GI: Soft, Nontender, Nondistended and Normal Bowel Sounds; Negative Organomegaly
Rectal: Deferred by Provider
Musculoskeletal: No Clubbing, No Cyanosis and No Edema
Skin: Negative Rash
Neuro: Nonfocal/Grossly Intact
[2024-07-11 15:00] VITALS: BP 97/56
[2024-07-11 15:26] VITALS: BP 97/30; PULSE 104; PULSE 86; O2SAT 92
[2024-07-11 15:28] LABS: COVID-19 Antigen Negative (Negative)
[2024-07-11] MEDS: STERILE WATER FOR INJECTION IV (16:44)
[2024-07-11] MEDS: AUGMENTIN 875 MG/125 MG 1 TABLET PO (20:29)
[2024-07-11] MEDS: NEURONTIN 200 MG PO (22:17)
[2024-07-11] MEDS: CLARITIN 10 MG PO (22:17)
[2024-07-11 23:44] VITALS: BP 102/59
[2024-07-12] MEDS: STERILE WATER FOR INJECTION IV ×2 (05:39→17:06)
[2024-07-12 06:00] VITALS: BMI 28.2
[2024-07-12 07:00] VITALS: BP 116/62
[2024-07-12] MEDS: TYLENOL 1000 MG PO ×3 (07:45→22:16)
[2024-07-12] MEDS: PROTONIX 40 MG PO (07:46)
[2024-07-12] MEDS: NEURONTIN 100 MG PO (07:46)
[2024-07-12] MEDS: AUGMENTIN 875 MG/125 MG 1 TABLET PO ×2 (07:46→20:24)
[2024-07-12] MEDS: LEXAPRO 10 MG PO (07:46)
[2024-07-12] MEDS: RISPERDAL 0.25 MG PO (07:46)
[2024-07-12] MEDS: FARXIGA 10 MG PO (07:46)
[2024-07-12] MEDS: ELIQUIS 5 MG PO ×2 (07:46→20:24)
[2024-07-12] MEDS: MYRBETRIQ EXTENDED RELEASE 50 MG PO (07:46)
[2024-07-12] MEDS: SENOKOT 17.2 MG PO (07:46)
[2024-07-12] MEDS: MUCINEX 600 MG PO ×2 (07:47→20:24)
[2024-07-12] MEDS: PREPARATION H MAX STRENGTH PAIN RELIEF CREAM 1 APPLIC RECTAL ×2 (07:47→20:31)
[2024-07-12] MEDS: PACERONE 200 MG PO (07:48)
--- NOTE | 2024-07-12 09:00 | CM ---
called [facility] #[phone] to check on Auth for patient; pending Auth is [id number]
Plan: discharge to SNF pending AUTH approval
[facility] SN[facility]
Report [phone]

Transport: Family will transport to SNF
--- NOTE | 2024-07-12 09:22 | W.PN.HOSP.TC ---
Today's Communication/Plan
-
dc planning
Await blood work result
Assessment / Plan
Assessment / Plan
Physical Exam
-
General: Well Developed and No Apparent Distress
HEENT: Normocephalic, Atraumatic and Moist Mucous Membranes
Respiratory: mild basal rhonchi; Negative Wheezes
Cardiac: Regular Rhythm, S1/S2 and Murmur; Negative Rub or Gallop
GI: Soft, Nontender, Nondistended and Normal Bowel Sounds; Negative Organomegaly
Rectal: no bleeding
Musculoskeletal: No Clubbing, No Cyanosis and No Edema
Skin: Negative Rash
Neuro: Nonfocal/Grossly Intact
Impression:
Acute hypoxic respiratory insufficiency secondary to pneumonia.
Pneumonia, right lower lobe infiltrate suspect secondary to aspiration
Hiatal hernia
Hypokalemia
Recent hospitalization with bronchitis completed course of doxycycline and steroid taper discharged on 07/04
Other conditions:
COPD by history
Large hiatal hernia
Paroxysmal atrial fibrillation baseline anticoagulation with Eliquis.
Heart failure reduced EF
CAD, mild nonobstructive.
History of ICH.
History of PE/DVT.
Former smoker.
Depression
Plan:
Acute hypoxic respiratory insufficiency suspected secondary to pneumonia. Given hiatal hernia, there is a reasonable concern for aspiration syndrome.
Right lower lobe pneumonia secondary to aspiration in a patient with large hiatal hernia
Speech and swallow evaluation with no significant oropharyngeal dysfunction
Aspiration precautions
PPI
Sepsis POA, resolved.
MRSA colonization noted.
Clinically doubt this is a staphylococcal pneumonia
Antibiotics cefepime vancomycin consolidated to Augmentin: 07/11. Will give additional oral therapy through 07/16.
COPD by history, no wheezes today
Exam with coarse diffuse rhonchi without bronchospasm
No indication to extend stable corticosteroid course at this point
Continue COREY
Continue mucolytic's
Acute on chronic CHF reduced EF.
CAD.
Echo 04/12 LVEF 40-45% with global hypokinesis. Severely dilated left atrium. Severely dilated right atrium. Mild to moderate MR. Mild TR with pulmonary hypertension PAP 45-50 mmHg.
Provide additional diuresis with Lasix 40 mg IV on 07/08. Replete potassium. With slightly elevated creatinine of 1.2 hold Lasix and resume on 07/13 @ AM.
Continue Farxiga
# Hyponatremia, mild
# Hypokalemia, resolved.
# CKD stage IIIA
#Paroxysmal A-fib
Currently normal sinus rhythm
Initial concern for prolonged QT/QTc. Repeat EKG within normal limits.
Continue amiodarone
Continue anticoagulation with Eliquis.
# Mild senile Cognitive dysfunction
Continue preadmission regimen including risperidone, gabapentin, escitalopram.
# Pressure injury stage I present on admission/gluteal cleft vertical
DNR.
DVT prophylaxis/
Total time spent to see the patient on the floor, examine the patient, review data and lab results, discuss treatment plan with patient, nursing staff around 55 minutes
Anticipated Discharge: Within 24 hours
Subjective/Interval History
-
Date of Service: July 12, 2024
No sob
No chest pain
no abdominal pain
Objective Data
-
Labs:
Laboratory Results
07/12/24
08:25
Sodium Pending
Potassium Pending
Chloride Pending
Carbon Dioxide Pending
BUN Pending
Creatinine Pending
Glucose Pending
Calcium Pending
Vital Signs:
Vital Signs
Temp Pulse Resp BP Pulse Ox
98.1 F 110 16 116/61 92
07/12/24 07:00 07/12/24 07:48 07/12/24 07:00 07/12/24 07:48 07/12/24 07:00
I&O
07/11/24 07/12/24 07/13/24
06:59 06:59 06:59
Intake Total 1080 / 1080 1050 / 1050
Balance 1080 / 1080 1050 / 1050
[2024-07-12 09:53] LABS: Blood Urea Nitrogen 22 mg/dl (7-17); Calcium 8.3 mg/dl (8.4-10.2); Carbon Dioxide 26 mmol/L (22-30); Chloride 104 mmol/L (98-107); Estimated Creatinine Clearance 28 ml/min; Glucose 108 mg/dl (70-99); Potassium 3.7 mmol/L (3.5-5.1); Sodium 135 mmol/L (135-145); eGFR 43.27
[2024-07-12 15:05] VITALS: BP 109/61
[2024-07-12 16:10] VITALS: BP 109/61
[2024-07-12] MEDS: BACTROBAN 2% OINTMENT 1 APPLIC TOPICAL (20:25)
[2024-07-12] MEDS: CLARITIN 10 MG PO (22:16)
[2024-07-12] MEDS: NEURONTIN 200 MG PO (22:16)
[2024-07-12 23:00] VITALS: BP 125/101
[2024-07-13] MEDS: ANESTHETIC LOZENGE 1 LOZENGE PO (01:53)
[2024-07-13] MEDS: STERILE WATER FOR INJECTION IV ×2 (04:53→17:09)
[2024-07-13 05:13] VITALS: BMI 28.8
[2024-07-13 06:00] VITALS: BMI 28.8
[2024-07-13 08:01] VITALS: BP 128/59
[2024-07-13] MEDS: SENOKOT 17.2 MG PO (09:10)
[2024-07-13] MEDS: FARXIGA 10 MG PO (09:10)
[2024-07-13] MEDS: MUCINEX 600 MG PO (09:10)
[2024-07-13] MEDS: AUGMENTIN 875 MG/125 MG 1 TABLET PO ×2 (09:11→20:13)
[2024-07-13] MEDS: LEXAPRO 10 MG PO (09:11)
[2024-07-13] MEDS: PACERONE 200 MG PO (09:11)
[2024-07-13] MEDS: TYLENOL 1000 MG PO ×2 (09:12→20:14)
[2024-07-13] MEDS: RISPERDAL 0.25 MG PO (09:12)
[2024-07-13] MEDS: MYRBETRIQ EXTENDED RELEASE 50 MG PO (09:12)
[2024-07-13] MEDS: NEURONTIN 100 MG PO (09:12)
[2024-07-13] MEDS: ELIQUIS 5 MG PO ×2 (09:12→20:13)
[2024-07-13] MEDS: PROTONIX 40 MG PO (09:12)
[2024-07-13] MEDS: PREPARATION H MAX STRENGTH PAIN RELIEF CREAM 1 APPLIC RECTAL ×2 (09:13→20:14)
--- NOTE | 2024-07-13 11:00 | W.PN.HOSP.TC ---
Today's Communication/Plan
-
Add Robitussin DM at night
Assessment / Plan
Assessment / Plan
Physical Exam
-
General: Well Developed and No Apparent Distress
HEENT: Normocephalic, Atraumatic and Moist Mucous Membranes
Respiratory: mild basal rhonchi; Negative Wheezes
Cardiac: Regular Rhythm, S1/S2 and Murmur; Negative Rub or Gallop
GI: Soft, Nontender, Nondistended and Normal Bowel Sounds; Negative Organomegaly
Rectal: no bleeding
Musculoskeletal: No Clubbing, No Cyanosis and No Edema
Skin: Negative Rash
Neuro: Nonfocal/Grossly Intact
Impression:
Acute hypoxic respiratory insufficiency secondary to pneumonia.
Pneumonia, right lower lobe infiltrate suspect secondary to aspiration
Hiatal hernia
Hypokalemia
Recent hospitalization with bronchitis completed course of doxycycline and steroid taper discharged on 07/04
Other conditions:
COPD by history
Large hiatal hernia
Paroxysmal atrial fibrillation baseline anticoagulation with Eliquis.
Heart failure reduced EF
CAD, mild nonobstructive.
History of ICH.
History of PE/DVT.
Former smoker.
Depression
Plan:
Acute hypoxic respiratory insufficiency suspected secondary to pneumonia. Given hiatal hernia, there is a reasonable concern for aspiration syndrome.
Right lower lobe pneumonia secondary to aspiration in a patient with large hiatal hernia
Speech and swallow evaluation with no significant oropharyngeal dysfunction
Aspiration precautions
PPI
Sepsis POA, resolved.
MRSA colonization noted.
Clinically doubt this is a staphylococcal pneumonia
Antibiotics cefepime vancomycin consolidated to Augmentin: 07/11. Will give additional oral therapy through 07/16.
COPD by history, no wheezes today
Exam with much less coarse diffuse rhonchi without bronchospasm
No indication to extend stable corticosteroid course at this point
Add standing dose of cough medicine Robitussin DM at nighttime
Continue mucolytic's
Acute on chronic CHF reduced EF.
CAD.
Echo 04/12 LVEF 40-45% with global hypokinesis. Severely dilated left atrium. Severely dilated right atrium. Mild to moderate MR. Mild TR with pulmonary hypertension PAP 45-50 mmHg.
Provide additional diuresis with Lasix 40 mg IV on 07/08. Replete potassium. With slightly elevated creatinine of 1.2 hold Lasix and resume on 07/13 @ AM.
Continue Farxiga
# Hyponatremia, mild
# Hypokalemia, resolved.
# CKD stage IIIA
#Paroxysmal A-fib
Currently normal sinus rhythm
Initial concern for prolonged QT/QTc. Repeat EKG within normal limits.
Continue amiodarone
Continue anticoagulation with Eliquis.
# Mild senile Cognitive dysfunction
Continue preadmission regimen including risperidone, gabapentin, escitalopram.
# Pressure injury stage I present on admission/gluteal cleft vertical
DNR.
DVT prophylaxis/
Total time spent to see the patient on the floor, examine the patient, review data and lab results, discuss treatment plan with patient, nursing staff around 55 minutes
Anticipated Discharge: 24 - 48 hours
Subjective/Interval History
-
Date of Service: July 13, 2024
She complains of cough at night
No chest pain
Objective Data
-
Vital Signs:
Vital Signs
Temp Pulse Resp BP Pulse Ox
98.1 F 98 20 128/59 95
07/13/24 08:01 07/13/24 08:01 07/13/24 08:01 07/13/24 09:11 07/13/24 08:01
I&O
07/12/24 07/13/24 07/14/24
06:59 06:59 06:59
Intake Total 1050 / 1050 820 / 820
Balance 1050 / 1050 820 / 820
--- NOTE | 2024-07-13 11:35 | CM ---
called [employer] #[phone] to check on Auth status for patient
Pending Auth # [id number]
Racking Machine Operator reported that Authorization is still in review
[2024-07-13] MEDS: LASIX 20 MG PO (17:10)
[2024-07-13 17:11] VITALS: BP 126/77
[2024-07-13] MEDS: ROBITUSSIN DM 10 ML PO (21:43)
[2024-07-13] MEDS: NEURONTIN 200 MG PO (21:46)
[2024-07-13 23:43] VITALS: BP 98/58
[2024-07-14 05:33] VITALS: BMI 28.8
[2024-07-14] MEDS: STERILE WATER FOR INJECTION IV (06:38)
[2024-07-14 07:25] VITALS: BP 121/70
[2024-07-14] MEDS: NEURONTIN 100 MG PO (08:20)
[2024-07-14] MEDS: LASIX 20 MG PO (08:20)
[2024-07-14] MEDS: RISPERDAL 0.25 MG PO (08:20)
[2024-07-14] MEDS: PROTONIX 40 MG PO (08:20)
[2024-07-14] MEDS: MYRBETRIQ EXTENDED RELEASE 50 MG PO (08:20)
[2024-07-14] MEDS: AUGMENTIN 875 MG/125 MG 1 TABLET PO (08:20)
[2024-07-14] MEDS: TYLENOL 1000 MG PO (08:20)
[2024-07-14] MEDS: FARXIGA 10 MG PO (08:20)
[2024-07-14] MEDS: ELIQUIS 5 MG PO (08:21)
[2024-07-14] MEDS: LEXAPRO 10 MG PO (08:21)
[2024-07-14] MEDS: PACERONE 200 MG PO (08:21)
[2024-07-14] MEDS: SENOKOT 17.2 MG PO (08:22)
[2024-07-14] MEDS: PREPARATION H MAX STRENGTH PAIN RELIEF CREAM 1 APPLIC RECTAL (08:23)
--- NOTE | 2024-07-14 11:07 | CM ---
support group manager spoke with patient's insurance and received Auth from Richa Blackwell patient has been approved for 3 days skilled 07/14 to 07/16 Auth [id number], follow up with Braydon Lee, NRD 07/16. Patient needs COVID testing prior to
discharge, physician is aware.Ambulance transport set up as [facility] now on 3 liters of oxygen.
Plan; Skilled placement at [facility] today.
[facility]
Report [phone]
[2024-07-14 11:55] VITALS: BP 132/72
[2024-07-14 12:21] LABS: COVID-19 Antigen Negative (Negative)
== END 2024-07-14 12:41 | DRG 871 ==
LOC: 4 WEST ACU 20:29
PROVIDERS: Nurse Practitioner Family; ADMITTING PHYSICIAN Internal Medicine; ATTENDING PHYSICIAN Internal Medicine; EMERGENCY PHYSICIAN Emergency Medicine; FAMILY PHYSICIAN Internal Medicine
DX: A41.9 Sepsis, unspecified organism (principal); J69.0 Pneumonitis due to inhalation of food and vomit; J96.01 Acute respiratory failure with hypoxia; J44.0 Chronic obstructive pulmonary disease with (acute) lower respiratory infection; I50.20 Unspecified systolic (congestive) heart failure; F03.93 Unspecified dementia, unspecified severity, with mood disturbance; E87.1 Hypo-osmolality and hyponatremia; I13.0 Hypertensive heart and chronic kidney disease with heart failure and stage 1 through stage 4 chronic kidney disease, or unspecified chronic kidney disease; K44.9 Diaphragmatic hernia without obstruction or gangrene; E87.6 Hypokalemia; I48.0 Paroxysmal atrial fibrillation; Z79.01 Long term (current) use of anticoagulants; I25.10 Atherosclerotic heart disease of native coronary artery without angina pectoris; Z86.711 Personal history of pulmonary embolism; Z86.718 Personal history of other venous thrombosis and embolism; Z87.891 Personal history of nicotine dependence; F32.A Depression, unspecified; Z22.322 Carrier or suspected carrier of Methicillin resistant Staphylococcus aureus; Z66 Do not resuscitate; I69.311 Memory deficit following cerebral infarction; E78.00 Pure hypercholesterolemia, unspecified; N32.81 Overactive bladder; Z96.651 Presence of right artificial knee joint; N18.31 Chronic kidney disease, stage 3a; L89.301 Pressure ulcer of unspecified buttock, stage 1; K21.9 Gastro-esophageal reflux disease without esophagitis; Z11.52 Encounter for screening for COVID-19
CPT/HCPCS: 71046; 74230; 80048; 80053; 80202; 83880; 84484; 85025; 85027; 87040; 87070; 87147; 87324; 87449; 87502; 87811; 92526; 92610; 92611; 93005; 94640; 96374; 97116; 97167; 97530; 99285